=== PATIENT | male | born 1940 | race Caucasian/White ===

== ENCOUNTER 2019-07-11 17:11 | Inpatient (IN) ==
[2019-07-11] MEDS ORDERED: MORPHINE 10 MG/1 ML VIAL ONE (17:19)
[2019-07-11] MEDS ORDERED: hydrALAZINE 20 MG/1 ML VIAL ONE (17:19)
[2019-07-11] MEDS ORDERED: MORPHINE 10 MG/1 ML VIAL IV STA (17:22)
[2019-07-11] MEDS ORDERED: hydrALAZINE 20 MG/1 ML VIAL IV STA (17:22)
[2019-07-11] MEDS ORDERED: ALBUTEROL NEB SOLN 5 MG/ML 20 ML/BOTTLE CONT NEB STA (17:22)
[2019-07-11] MEDS ORDERED: FUROSEMIDE 100 MG/10 ML VIAL IV STA (17:23)
[2019-07-11] MEDS ORDERED: methylPREDNISolone SOD SUC 40 MG/1 ML VIAL IV STA (17:23)
[2019-07-11] MEDS ORDERED: NITROGLYCERIN SL 0.4 MG TABLET SL STA (17:24)
[2019-07-11] MEDS ORDERED: NITROGLYCERIN 2% OINT 1 INCH/GM PACK TOP STA (17:24)
[2019-07-11] MEDS ORDERED: NITROGLYCERIN SL 0.4 MG TABLET SL ONE (17:26)
[2019-07-11 18:10] LABS: ABG Base Excess -4.1 MMOL/L (-2.5-2.5); ABG HCO3 21.1 MMOL/L (20-26); ABG Oxygen Saturation 98.3 % (95-100); ABG PH 7.211 (7.35-7.45); ABG TCO2 22.9 MMOL/L (23-27)
[2019-07-11 18:12] LABS: Basophils # 0.7 10*3/uL (0.0-0.2); Basophils % 2.2 % (0.0-0.8); Eosinophils # 1.1 10*3/uL (0.0-0.87); Eosinophils % 3.3 % (0.00-10.9); Immature Granulocytes % 3.3 %; Immature Granulocytes Absolute 1.08 #; Lymphocytes # 3.4 10*3/uL (1.4-4.0); Lymphocytes % 10.3 % (21.2-54.2); Mean Corpuscular HGB Conc 31.6 GM/DL (32-36); Mean Corpuscular Volume 94.9 FL (87-102); Mean Platelet Volume 11.5 FL (9.6-12.0); Monocytes % 2.6 % (1.7-12.7); NRBC # 0.16 10*3/uL; Neutrophils % 78.3 % (38.7-73.9); Platelet Count 619 T/CUMM (130-400); Red Cell Distribution Width 18.8 % (9.3-17.3); White Blood Count 32.8 T/CUMM (4-12)
[2019-07-11 18:12] LABS: ABG PCO2 69.9 MM HG (35-48)
[2019-07-11 18:16] LABS: Hematocrit 65.5 VOL% (42.0-52.0); Hemoglobin 20.7 GM/DL (14.0-18.0)
[2019-07-11] MEDS ORDERED: ACETAMINOPHEN 325 MG TABLET PO PRN (18:29)
[2019-07-11] MEDS ORDERED: MORPHINE 4 MG/1 ML VIAL IV PRN (18:29)
[2019-07-11] MEDS ORDERED: ONDANSETRON 4 MG/2 ML VIAL IV PRN (18:29)
[2019-07-11 18:48] LABS: Calcium 8.5 MG/DL (8.5-10.1)
[2019-07-11 18:49] LABS: Albumin 3.7 G/DL (3.4-5.0); Bilirubin,Total 0.77 MG/DL (0.2-1.0); Osmolality,Calculated 288.4 MOS/KG (273-304); Total Protein 7.9 G/DL (6.4-8.3)
[2019-07-11] MEDS: PROPOFOL 1,000 MG/100 ML BOTTLE IV SCH (18:50)
[2019-07-11 18:55] LABS: Risk Ratio 5.09; VLDL CHOLESTEROL 77.6 MG/DL
[2019-07-11] MEDS ORDERED: ROCURONIUM 100 MG/10 ML VIAL IV ONE (19:00)
[2019-07-11] MEDS ORDERED: VECURONIUM 10 MG VIAL IV ONE (19:00)
[2019-07-11] MEDS ORDERED: ETOMIDATE 20 MG/10 ML VIAL IV ONE (19:01)
[2019-07-11 19:27] LABS: Band Neutrophils 15 % (0-10); Eosinophils 3 % (0-10); Lymphocytes 12 % (20-55); Segmented Neutrophils 69 % (50-85); Total Cells Counted 100
[2019-07-11 19:29] LABS: Platelet Estimate Increased; Reactive Lymphocytes Slight
[2019-07-11] MEDS ORDERED: DOPamine 800 MG/250 ML PREMIX IV PRN (20:16)
[2019-07-11] MEDS ORDERED: DOPamine 800 MG/250 ML PREMIX IV ONE (20:19)
[2019-07-11] MEDS: ALBUTEROL 2.5 MG/3 ML NEB RESP TX SCH (20:48)
[2019-07-11] MEDS ORDERED: ENOXAPARIN 40 MG/0.4 ML SYRINGE SUBCUT SCH (21:00)
[2019-07-11] MEDS: PANTOPRAZOLE 40 MG VIAL IV SCH (22:47)
[2019-07-11] MEDS: DOCUSATE SODIUM 100 MG CAPSULE PO SCH (22:47)
[2019-07-11 23:48] LABS: Calcium 8.1 MG/DL (8.5-10.1); Osmolality,Calculated 294.8 MOS/KG (273-304)
[2019-07-12 00:20] LABS: Apearance,Urine CLOUDY (Clear); Bacteria,Urine Occasional /HPF (Few); Bilirubin,Urine Negative (Negative); Blood, Urine Moderate mg/dL (Negative); Glucose,Urine (UA) 50 mg/dL (Negative); Hyaline Casts,Urine 14 /LPF (0-3); Ketones,Urine Negative (Negative); Mucus,Urine Occasional /LPF (Occasional); Nitrite,Urine Negative (Negative); Protein,Urine 100 MG/DL; RBC,Urine 6 /HPF (0-4); Squamous Epithelial Cell,Urine Occasional /HPF (0-10); Urine Color Amber (Yellow); Urine Specific Gravity 1.013 (1.001-1.035); Urine Urobilinogen < 2.0 EU/DL (0.2-1.0); WBC,Urine 10 /HPF (0-6)
[2019-07-12] MEDS: ALBUTEROL 2.5 MG/3 ML NEB RESP TX SCH ×4 (00:55→20:33)
[2019-07-12] MEDS: PROPOFOL 1,000 MG/100 ML BOTTLE IV SCH ×4 (03:06→22:59)
[2019-07-12 04:12] LABS: ABG Base Excess 2.8 MMOL/L (-2.5-2.5); ABG HCO3 26.9 MMOL/L (20-26); ABG Oxygen Saturation 99.3 % (95-100); ABG PCO2 42.1 MM HG (35-48); ABG PH 7.424 (7.35-7.45); ABG TCO2 22.6 MMOL/L (23-27); Allen Test Positive; Pt O2 Delivery Device Ventilator
[2019-07-12 04:52] LABS: Basophils # 0.1 10*3/uL (0.0-0.2); Basophils % 0.6 % (0.0-0.8); Eosinophils # 0.1 10*3/uL (0.0-0.87); Eosinophils % 0.4 % (0.00-10.9); Hematocrit 52.4 VOL% (42.0-52.0); Immature Granulocytes % 2.1 %; Immature Granulocytes Absolute 0.46 #; Lymphocytes # 0.5 10*3/uL (1.4-4.0); Lymphocytes % 2.4 % (21.2-54.2); Mean Corpuscular HGB Conc 32.6 GM/DL (32-36); Mean Corpuscular Volume 93.9 FL (87-102); Mean Platelet Volume 12.7 FL (9.6-12.0); Monocytes % 1.9 % (1.7-12.7); Neutrophils % 92.6 % (38.7-73.9); Red Blood Count 5.58 MC/CUMM (3.8-5.5); Red Cell Distribution Width 17.8 % (9.3-17.3); White Blood Count 21.9 T/CUMM (4-12)
[2019-07-12 04:55] LABS: Hemoglobin 17.1 GM/DL (14.0-18.0)
[2019-07-12 04:56] LABS: Platelet Count 298 T/CUMM (130-400)
[2019-07-12 05:00] LABS: Band Neutrophils 8 % (0-10); Lymphocytes 3 % (20-55); Platelet Estimate Adequate; Segmented Neutrophils 89 % (50-85); Total Cells Counted 100
[2019-07-12 05:10] LABS: Calcium 7.7 MG/DL (8.5-10.1); Osmolality,Calculated 291.1 MOS/KG (273-304)
[2019-07-12] MEDS: MEROPENEM 1,000 MG in SODIUM CHLORIDE 0.9% 100 ML IV SCH ×2 (06:29→18:13)
[2019-07-12] MEDS: ALLOPURINOL 100 MG TABLET PO SCH (08:58)
[2019-07-12] MEDS: amLODIPine 5 MG TABLET PO SCH (08:58)
[2019-07-12] MEDS: ASPIRIN EC 81 MG TABLET PO SCH (08:58)
[2019-07-12] MEDS: carvediloL 25 MG TABLET PO SCH ×2 (08:58→17:05)
[2019-07-12] MEDS: DOCUSATE SODIUM 100 MG CAPSULE PO SCH ×2 (08:58→21:52)
[2019-07-12] MEDS: FUROSEMIDE 40 MG/4 ML VIAL IV SCH (08:58)
[2019-07-12] MEDS: methylPREDNISolone SOD SUC 40 MG/1 ML VIAL IV SCH ×2 (08:59→17:05)
[2019-07-12] MEDS ORDERED: PANTOPRAZOLE 40 MG TABLET PO SCH (09:00)
[2019-07-12] MEDS: ENOXAPARIN 80 MG/0.8 ML SYRINGE SUBCUT SCH (14:56)
[2019-07-12] MEDS: DESITIN 4OZ/NYSTATIN 15 GRAM MIXTURE PASTE TOP SCH ×2 (17:03→21:51)
[2019-07-12] MEDS: PANTOPRAZOLE 40 MG VIAL IV SCH (21:52)
[2019-07-13] MEDS: methylPREDNISolone SOD SUC 40 MG/1 ML VIAL IV SCH ×3 (01:17→17:00)
[2019-07-13] MEDS: ALBUTEROL 2.5 MG/3 ML NEB RESP TX SCH ×4 (01:44→20:14)
[2019-07-13 04:18] LABS: ABG Base Excess 3.4 MMOL/L (-2.5-2.5); ABG HCO3 27.4 MMOL/L (20-26); ABG Oxygen Saturation 99.6 % (95-100); ABG PCO2 38.4 MM HG (35-48); ABG PH 7.459 (7.35-7.45); ABG TCO2 22.7 MMOL/L (23-27); Allen Test Positive; Pt O2 Delivery Device Ventilator
[2019-07-13 05:06] LABS: Basophils # 0.1 10*3/uL (0.0-0.2); Basophils % 0.3 % (0.0-0.8); Hematocrit 48.8 VOL% (42.0-52.0); Hemoglobin 15.8 GM/DL (14.0-18.0); Immature Granulocytes % 1.2 %; Immature Granulocytes Absolute 0.21 #; Lymphocytes # 0.4 10*3/uL (1.4-4.0); Lymphocytes % 2.6 % (21.2-54.2); Mean Corpuscular HGB Conc 32.4 GM/DL (32-36); Mean Corpuscular Volume 92.6 FL (87-102); Mean Platelet Volume 12.5 FL (9.6-12.0); Neutrophils % 94.9 % (38.7-73.9); Platelet Count 267 T/CUMM (130-400); Red Blood Count 5.27 MC/CUMM (3.8-5.5); Red Cell Distribution Width 17.3 % (9.3-17.3); White Blood Count 16.9 T/CUMM (4-12)
[2019-07-13 05:17] LABS: Calcium 8.3 MG/DL (8.5-10.1); Osmolality,Calculated 309.1 MOS/KG (273-304)
[2019-07-13 05:32] LABS: Band Neutrophils 6 % (0-10); Lymphocytes 1 % (20-55); Segmented Neutrophils 93 % (50-85); Total Cells Counted 100
[2019-07-13 05:33] LABS: Hypochromasia 1+; Platelet Estimate Adequate
[2019-07-13] MEDS: PROPOFOL 1,000 MG/100 ML BOTTLE IV SCH ×4 (05:44→20:38)
[2019-07-13] MEDS: MEROPENEM 1,000 MG in SODIUM CHLORIDE 0.9% 100 ML IV SCH ×2 (05:51→18:17)
[2019-07-13] MEDS ORDERED: GLUCAGON 1 MG VIAL IM PRN (08:02)
[2019-07-13] MEDS ORDERED: DEXTROSE 10% 250 ML BAG IV PRN (08:02)
[2019-07-13] MEDS: FUROSEMIDE 40 MG/4 ML VIAL IV SCH (09:25)
[2019-07-13] MEDS: amLODIPine 5 MG TABLET PO SCH (09:28)
[2019-07-13] MEDS: ALLOPURINOL 100 MG TABLET PO SCH (09:28)
[2019-07-13] MEDS: ASPIRIN EC 81 MG TABLET PO SCH (09:28)
[2019-07-13] MEDS: DOCUSATE SODIUM 100 MG CAPSULE PO SCH ×2 (09:28→20:39)
[2019-07-13] MEDS: carvediloL 12.5 MG TABLET PO SCH ×2 (09:29→16:59)
[2019-07-13] MEDS: DESITIN 4OZ/NYSTATIN 15 GRAM MIXTURE PASTE TOP SCH ×2 (09:29→20:39)
[2019-07-13] MEDS: carvediloL 25 MG TABLET PO SCH (10:48)
[2019-07-13] MEDS: INSULIN LISPRO 100 UNIT/ML SUBCUT SCH ×2 (12:55→18:23)
[2019-07-13] MEDS: ENOXAPARIN 80 MG/0.8 ML SYRINGE SUBCUT SCH (16:59)
[2019-07-13] MEDS: PANTOPRAZOLE 40 MG VIAL IV SCH (20:39)
[2019-07-13] MEDS: ENOXAPARIN 30 MG/0.3 ML SYRINGE SUBCUT SCH (20:39)
[2019-07-14] MEDS: PROPOFOL 1,000 MG/100 ML BOTTLE IV SCH ×2 (00:16→04:41)
[2019-07-14] MEDS: INSULIN LISPRO 100 UNIT/ML SUBCUT SCH ×4 (00:37→18:42)
[2019-07-14] MEDS: methylPREDNISolone SOD SUC 40 MG/1 ML VIAL IV SCH ×3 (00:37→17:30)
[2019-07-14] MEDS: ALBUTEROL 2.5 MG/3 ML NEB RESP TX SCH ×4 (01:00→19:41)
[2019-07-14 03:19] LABS: ABG Base Excess 4.2 MMOL/L (-2.5-2.5); ABG HCO3 29.1 MMOL/L (20-26); ABG Oxygen Saturation 98.9 % (95-100); ABG PCO2 44.2 MM HG (35-48); ABG PH 7.437 (7.35-7.45); ABG PO2 156.5 MM HG (80-95); ABG TCO2 30.5 MMOL/L (23-27); Allen Test Positive; Pt O2 Delivery Device Ventilator
[2019-07-14 05:02] LABS: Basophils % 0.2 % (0.0-0.8); Hematocrit 49.8 VOL% (42.0-52.0); Hemoglobin 15.6 GM/DL (14.0-18.0); Immature Granulocytes % 2.4 %; Immature Granulocytes Absolute 0.47 #; Lymphocytes # 0.4 10*3/uL (1.4-4.0); Lymphocytes % 2.1 % (21.2-54.2); Mean Corpuscular HGB Conc 31.3 GM/DL (32-36); Mean Platelet Volume 12.3 FL (9.6-12.0); Monocytes % 1.3 % (1.7-12.7); Platelet Count 289 T/CUMM (130-400); Red Blood Count 5.24 MC/CUMM (3.8-5.5); Red Cell Distribution Width 17.6 % (9.3-17.3); White Blood Count 19.3 T/CUMM (4-12)
[2019-07-14 05:21] LABS: Calcium 8.3 MG/DL (8.5-10.1); Osmolality,Calculated 316.8 MOS/KG (273-304)
[2019-07-14 05:26] LABS: Prealbumin 22.5 MG/DL (20-40)
[2019-07-14 05:41] LABS: Lymphocytes 1 % (20-55); Platelet Estimate Normal; Segmented Neutrophils 99 % (50-85); Total Cells Counted 100
[2019-07-14] MEDS: MEROPENEM 1,000 MG in SODIUM CHLORIDE 0.9% 100 ML IV SCH ×2 (05:49→19:05)
[2019-07-14] MEDS: ASPIRIN EC 81 MG TABLET PO SCH (08:47)
[2019-07-14] MEDS: FUROSEMIDE 40 MG/4 ML VIAL IV SCH (08:47)
[2019-07-14] MEDS: ALLOPURINOL 100 MG TABLET PO SCH (08:48)
[2019-07-14] MEDS: carvediloL 12.5 MG TABLET PO SCH ×2 (08:48→18:23)
[2019-07-14] MEDS: amLODIPine 5 MG TABLET PO SCH (08:48)
[2019-07-14] MEDS: DOCUSATE SODIUM 100 MG CAPSULE PO SCH ×2 (08:48→20:27)
[2019-07-14] MEDS: DESITIN 4OZ/NYSTATIN 15 GRAM MIXTURE PASTE TOP SCH ×2 (08:48→20:27)
[2019-07-14] MEDS ORDERED: carvediloL 12.5 MG TABLET PO SCH (11:30)
[2019-07-14] MEDS: PANTOPRAZOLE 40 MG VIAL IV SCH (20:26)
[2019-07-14] MEDS: ENOXAPARIN 30 MG/0.3 ML SYRINGE SUBCUT SCH (20:26)
[2019-07-15] MEDS: ALBUTEROL 2.5 MG/3 ML NEB RESP TX SCH ×4 (00:45→19:30)
[2019-07-15] MEDS: INSULIN LISPRO 100 UNIT/ML SUBCUT SCH ×4 (00:58→19:28)
[2019-07-15] MEDS: methylPREDNISolone SOD SUC 40 MG/1 ML VIAL IV SCH ×4 (00:58→20:50)
[2019-07-15] MEDS: MEROPENEM 1,000 MG in SODIUM CHLORIDE 0.9% 100 ML IV SCH (06:10)
[2019-07-15 06:31] LABS: Basophils # 0.1 10*3/uL (0.0-0.2); Basophils % 0.4 % (0.0-0.8); Eosinophils % 0.1 % (0.00-10.9); Hematocrit 55.1 VOL% (42.0-52.0); Hemoglobin 17.4 GM/DL (14.0-18.0); Immature Granulocytes % 2.8 %; Immature Granulocytes Absolute 0.55 #; Lymphocytes # 0.5 10*3/uL (1.4-4.0); Lymphocytes % 2.5 % (21.2-54.2); Mean Corpuscular HGB Conc 31.6 GM/DL (32-36); Mean Corpuscular Volume 94.3 FL (87-102); Mean Platelet Volume 12.4 FL (9.6-12.0); Monocytes % 1.4 % (1.7-12.7); NRBC # 0.02 10*3/uL; Neutrophils % 92.8 % (38.7-73.9); Platelet Count 278 T/CUMM (130-400); Red Blood Count 5.84 MC/CUMM (3.8-5.5); Red Cell Distribution Width 18.3 % (9.3-17.3)
[2019-07-15 06:55] LABS: Band Neutrophils 3 % (0-10); Eosinophils 1 % (0-10); Lymphocytes 1 % (20-55); Platelet Estimate Adequate; Segmented Neutrophils 95 % (50-85); Total Cells Counted 100
[2019-07-15 07:05] LABS: Albumin 3.1 G/DL (3.4-5.0); Bilirubin,Total 1.4 MG/DL (0.2-1.0); Calcium 8.7 MG/DL (8.5-10.1); Osmolality,Calculated 306.4 MOS/KG (273-304); Total Protein 6.5 G/DL (6.4-8.3)
[2019-07-15] MEDS ORDERED: FUROSEMIDE 40 MG TABLET PO SCH (09:00)
[2019-07-15] MEDS: FUROSEMIDE 40 MG TABLET PO SCH (09:42)
[2019-07-15] MEDS: ASPIRIN EC 81 MG TABLET PO SCH (09:42)
[2019-07-15] MEDS: DOCUSATE SODIUM 100 MG CAPSULE PO SCH ×2 (09:43→20:55)
[2019-07-15] MEDS: amLODIPine 5 MG TABLET PO SCH (09:43)
[2019-07-15] MEDS: carvediloL 12.5 MG TABLET PO SCH ×2 (09:43→19:27)
[2019-07-15] MEDS: ALLOPURINOL 100 MG TABLET PO SCH (09:43)
[2019-07-15] MEDS: DESITIN 4OZ/NYSTATIN 15 GRAM MIXTURE PASTE TOP SCH ×2 (09:43→21:10)
[2019-07-15] MEDS: PANTOPRAZOLE 40 MG VIAL IV SCH (20:52)
[2019-07-15] MEDS: MEROPENEM 500 MG in SODIUM CHLORIDE 0.9% 100 ML IV SCH (20:54)
[2019-07-16] MEDS: ALBUTEROL 2.5 MG/3 ML NEB RESP TX SCH ×4 (00:20→19:42)
[2019-07-16] MEDS: INSULIN LISPRO 100 UNIT/ML SUBCUT SCH ×4 (00:41→17:47)
[2019-07-16] MEDS: MEROPENEM 500 MG in SODIUM CHLORIDE 0.9% 100 ML IV SCH ×3 (04:30→20:05)
[2019-07-16 04:49] LABS: Basophils # 0.1 10*3/uL (0.0-0.2); Basophils % 0.4 % (0.0-0.8); Eosinophils # 0.2 10*3/uL (0.0-0.87); Eosinophils % 1.1 % (0.00-10.9); Hematocrit 52.7 VOL% (42.0-52.0); Hemoglobin 16.8 GM/DL (14.0-18.0); Immature Granulocytes Absolute 0.57 #; Lymphocytes # 0.7 10*3/uL (1.4-4.0); Lymphocytes % 3.6 % (21.2-54.2); Mean Corpuscular HGB Conc 31.9 GM/DL (32-36); Mean Corpuscular Volume 94.8 FL (87-102); Mean Platelet Volume 11.8 FL (9.6-12.0); NRBC # 0.03 10*3/uL; Neutrophils % 89.9 % (38.7-73.9); Platelet Count 269 T/CUMM (130-400); Red Blood Count 5.56 MC/CUMM (3.8-5.5); Red Cell Distribution Width 17.6 % (9.3-17.3); White Blood Count 18.8 T/CUMM (4-12)
[2019-07-16 05:30] LABS: Bilirubin,Total 1.2 MG/DL (0.2-1.0); Calcium 7.9 MG/DL (8.5-10.1); Osmolality,Calculated 308.3 MOS/KG (273-304)
[2019-07-16 06:15] LABS: Band Neutrophils 7 % (0-10); Eosinophils 1 % (0-10); Lymphocytes 7 % (20-55); Segmented Neutrophils 84 % (50-85); Total Cells Counted 100
[2019-07-16 06:16] LABS: Anisocytosis 1+; Platelet Estimate Normal; Tear Drop Cells 1+
[2019-07-16] MEDS: methylPREDNISolone SOD SUC 40 MG/1 ML VIAL IV SCH ×2 (10:14→21:52)
[2019-07-16] MEDS: FUROSEMIDE 40 MG TABLET PO SCH (10:15)
[2019-07-16] MEDS: amLODIPine 5 MG TABLET PO SCH (10:15)
[2019-07-16] MEDS: DOCUSATE SODIUM 100 MG CAPSULE PO SCH ×2 (10:15→21:51)
[2019-07-16] MEDS: carvediloL 12.5 MG TABLET PO SCH ×2 (10:16→17:47)
[2019-07-16] MEDS: ASPIRIN EC 81 MG TABLET PO SCH (10:16)
[2019-07-16] MEDS: DESITIN 4OZ/NYSTATIN 15 GRAM MIXTURE PASTE TOP SCH ×2 (10:21→22:00)
[2019-07-16] MEDS: ALLOPURINOL 100 MG TABLET PO SCH (10:21)
[2019-07-16] MEDS: PANTOPRAZOLE 40 MG VIAL IV SCH (21:55)
[2019-07-17] MEDS: ALBUTEROL 2.5 MG/3 ML NEB RESP TX SCH ×4 (00:27→19:41)
[2019-07-17] MEDS: INSULIN LISPRO 100 UNIT/ML SUBCUT SCH ×4 (00:34→18:10)
[2019-07-17] MEDS: MEROPENEM 500 MG in SODIUM CHLORIDE 0.9% 100 ML IV SCH ×3 (04:31→20:31)
[2019-07-17 05:17] LABS: Basophils # 0.1 10*3/uL (0.0-0.2); Basophils % 0.4 % (0.0-0.8); Eosinophils # 0.3 10*3/uL (0.0-0.87); Eosinophils % 1.4 % (0.00-10.9); Hematocrit 50.4 VOL% (42.0-52.0); Hemoglobin 16.2 GM/DL (14.0-18.0); Immature Granulocytes % 2.1 %; Immature Granulocytes Absolute 0.39 #; Lymphocytes # 0.6 10*3/uL (1.4-4.0); Lymphocytes % 3.1 % (21.2-54.2); Mean Corpuscular HGB Conc 32.1 GM/DL (32-36); Mean Platelet Volume 12.7 FL (9.6-12.0); Monocytes % 1.5 % (1.7-12.7); NRBC # 0.03 10*3/uL; Neutrophils % 91.5 % (38.7-73.9); Platelet Count 257 T/CUMM (130-400); Red Blood Count 5.42 MC/CUMM (3.8-5.5); Red Cell Distribution Width 17.3 % (9.3-17.3); White Blood Count 18.5 T/CUMM (4-12)
[2019-07-17 05:33] LABS: Albumin 2.9 G/DL (3.4-5.0); Bilirubin,Total 0.6 MG/DL (0.2-1.0); Osmolality,Calculated 301.7 MOS/KG (273-304); Total Protein 5.6 G/DL (6.4-8.3)
[2019-07-17 06:04] LABS: Band Neutrophils 24 % (0-10); Eosinophils 2 % (0-10); Lymphocytes 7 % (20-55); Platelet Estimate Normal; Segmented Neutrophils 65 % (50-85); Total Cells Counted 100
[2019-07-17 06:05] LABS: Anisocytosis Slight
[2019-07-17] MEDS: methylPREDNISolone SOD SUC 40 MG/1 ML VIAL IV SCH ×2 (09:04→20:27)
[2019-07-17] MEDS: amLODIPine 5 MG TABLET PO SCH (09:05)
[2019-07-17] MEDS: carvediloL 12.5 MG TABLET PO SCH ×2 (09:05→18:10)
[2019-07-17] MEDS: DOCUSATE SODIUM 100 MG CAPSULE PO SCH ×2 (09:05→20:28)
[2019-07-17] MEDS: ASPIRIN EC 81 MG TABLET PO SCH (09:05)
[2019-07-17] MEDS: FUROSEMIDE 40 MG TABLET PO SCH (09:06)
[2019-07-17] MEDS: DESITIN 4OZ/NYSTATIN 15 GRAM MIXTURE PASTE TOP SCH ×2 (18:09→20:31)
[2019-07-17] MEDS: ALLOPURINOL 100 MG TABLET PO SCH (18:09)
[2019-07-17] MEDS: INSULIN GLARGINE 100 UNIT/ML SUBCUT SCH (19:14)
[2019-07-17] MEDS: PANTOPRAZOLE 40 MG VIAL IV SCH (20:28)
[2019-07-18] MEDS: INSULIN LISPRO 100 UNIT/ML SUBCUT SCH ×4 (00:34→18:12)
[2019-07-18] MEDS: ALBUTEROL 2.5 MG/3 ML NEB RESP TX SCH ×4 (00:43→19:20)
[2019-07-18] MEDS: MEROPENEM 500 MG in SODIUM CHLORIDE 0.9% 100 ML IV SCH ×3 (04:13→21:40)
[2019-07-18 05:15] LABS: Basophils # 0.1 10*3/uL (0.0-0.2); Basophils % 0.5 % (0.0-0.8); Eosinophils # 0.3 10*3/uL (0.0-0.87); Eosinophils % 1.8 % (0.00-10.9); Hematocrit 51.5 VOL% (42.0-52.0); Hemoglobin 16.3 GM/DL (14.0-18.0); Immature Granulocytes % 3.8 %; Immature Granulocytes Absolute 0.72 #; Lymphocytes # 0.6 10*3/uL (1.4-4.0); Lymphocytes % 3.1 % (21.2-54.2); Mean Corpuscular HGB Conc 31.7 GM/DL (32-36); Mean Corpuscular Volume 94.7 FL (87-102); Mean Platelet Volume 12.3 FL (9.6-12.0); Monocytes % 1.8 % (1.7-12.7); NRBC # 0.05 10*3/uL; Platelet Count 270 T/CUMM (130-400); Red Blood Count 5.44 MC/CUMM (3.8-5.5); Red Cell Distribution Width 17.9 % (9.3-17.3)
[2019-07-18 05:47] LABS: Prealbumin 36.4 MG/DL (20-40)
[2019-07-18 05:48] LABS: Bilirubin,Total 1.1 MG/DL (0.2-1.0); Calcium 8.4 MG/DL (8.5-10.1); Osmolality,Calculated 310.3 MOS/KG (273-304); Total Protein 5.7 G/DL (6.4-8.3)
[2019-07-18 05:51] LABS: Band Neutrophils 6 % (0-10); Eosinophils 2 % (0-10); Lymphocytes 4 % (20-55); Platelet Estimate Normal; Segmented Neutrophils 88 % (50-85); Total Cells Counted 100
[2019-07-18 06:05] LABS: Anisocytosis 1+; Macrocytosis Slight; Ovalocytes Few; Stomatocytes Slight
[2019-07-18] MEDS ORDERED: ceFAZolin 1,000 MG in SYRINGE 1 EACH IV ONE (08:00)
[2019-07-18] MEDS ORDERED: TISSUE ADHESIVE 1 EACH APPLICATOR TOP ONE (09:12)
[2019-07-18] MEDS ORDERED: LIDOCAINE 1%/EPI INJ 20 ML VIAL ONE (09:12)
[2019-07-18] MEDS ORDERED: ceFAZolin 1,000 MG VIAL ONE (09:26)
[2019-07-18] MEDS: INSULIN GLARGINE 100 UNIT/ML SUBCUT SCH (10:37)
[2019-07-18] MEDS: ASPIRIN EC 81 MG TABLET PO SCH (12:16)
[2019-07-18] MEDS: ALLOPURINOL 100 MG TABLET PO SCH (12:16)
[2019-07-18] MEDS: carvediloL 12.5 MG TABLET PO SCH ×2 (12:17→18:12)
[2019-07-18] MEDS: DOCUSATE SODIUM 100 MG CAPSULE PO SCH ×2 (12:17→21:40)
[2019-07-18] MEDS: amLODIPine 5 MG TABLET PO SCH (12:17)
[2019-07-18] MEDS: FUROSEMIDE 40 MG TABLET PO SCH (12:17)
[2019-07-18] MEDS: methylPREDNISolone SOD SUC 40 MG/1 ML VIAL IV SCH ×2 (12:18→21:39)
[2019-07-18] MEDS: DESITIN 4OZ/NYSTATIN 15 GRAM MIXTURE PASTE TOP SCH ×2 (12:21→22:20)
[2019-07-18] MEDS ORDERED: DOXAZOSIN 1 MG TABLET PO SCH (21:00)
[2019-07-18] MEDS: PANTOPRAZOLE 40 MG VIAL IV SCH (21:39)
[2019-07-18] MEDS ORDERED: INSULIN LISPRO 100 UNIT/ML SUBCUT ONE (22:09)
[2019-07-19] MEDS: INSULIN LISPRO 100 UNIT/ML SUBCUT SCH ×3 (00:44→12:50)
[2019-07-19] MEDS: ALBUTEROL 2.5 MG/3 ML NEB RESP TX SCH ×2 (01:02→08:10)
[2019-07-19] MEDS: MEROPENEM 500 MG in SODIUM CHLORIDE 0.9% 100 ML IV SCH ×2 (05:20→12:51)
[2019-07-19 05:57] LABS: Basophils # 0.1 10*3/uL (0.0-0.2); Basophils % 0.4 % (0.0-0.8); Eosinophils # 0.3 10*3/uL (0.0-0.87); Eosinophils % 1.8 % (0.00-10.9); Hematocrit 48.8 VOL% (42.0-52.0); Hemoglobin 15.9 GM/DL (14.0-18.0); Immature Granulocytes % 4.9 %; Immature Granulocytes Absolute 0.84 #; Lymphocytes # 0.7 10*3/uL (1.4-4.0); Mean Corpuscular HGB Conc 32.6 GM/DL (32-36); Mean Corpuscular Volume 92.6 FL (87-102); Mean Platelet Volume 12.4 FL (9.6-12.0); Monocytes % 1.9 % (1.7-12.7); NRBC # 0.03 10*3/uL; Platelet Count 275 T/CUMM (130-400); Red Blood Count 5.27 MC/CUMM (3.8-5.5); Red Cell Distribution Width 18.1 % (9.3-17.3)
[2019-07-19 06:27] LABS: Band Neutrophils 10 % (0-10); Eosinophils 1 % (0-10); Lymphocytes 2 % (20-55); Segmented Neutrophils 86 % (50-85); Total Cells Counted 100
[2019-07-19 06:28] LABS: Anisocytosis 1+; Platelet Estimate Normal; Polychromasia Few
[2019-07-19 06:38] LABS: Albumin 2.7 G/DL (3.4-5.0); Calcium 8.4 MG/DL (8.5-10.1); Osmolality,Calculated 296.7 MOS/KG (273-304); Total Protein 5.3 G/DL (6.4-8.3)
[2019-07-19] MEDS: DOCUSATE SODIUM 100 MG CAPSULE PO SCH (09:30)
[2019-07-19] MEDS: ASPIRIN EC 81 MG TABLET PO SCH (09:30)
[2019-07-19] MEDS: ALLOPURINOL 100 MG TABLET PO SCH (09:31)
[2019-07-19] MEDS: amLODIPine 5 MG TABLET PO SCH (09:31)
[2019-07-19] MEDS: carvediloL 12.5 MG TABLET PO SCH (09:31)
[2019-07-19] MEDS: FUROSEMIDE 40 MG TABLET PO SCH (09:31)
[2019-07-19] MEDS: methylPREDNISolone SOD SUC 40 MG/1 ML VIAL IV SCH (09:32)
[2019-07-19] MEDS: DESITIN 4OZ/NYSTATIN 15 GRAM MIXTURE PASTE TOP SCH (09:32)
[2019-07-19] MEDS: INSULIN GLARGINE 100 UNIT/ML SUBCUT SCH (10:23)
[2019-07-19 12:59] VITALS: BP 136/65
== END 2019-07-19 15:21 | disposition home or self-care (01) | DRG 982 ==
LOC: N.ED 17:11 → N.EDINP 18:29 → N.CC 19:21 → N.TELES 07-15 13:14
PROVIDERS: ADMIT Family Medicine; ATTEND Family Medicine

== ENCOUNTER 2020-03-17 01:28 | Observation (INO) ==
[2020-03-17 01:58] LABS: Basophils # 0.1 10*3/uL (0.0-0.2); Basophils % 0.8 % (0.0-0.8); Eosinophils # 0.4 10*3/uL (0.0-0.87); Eosinophils % 3.1 % (0.00-10.9); Hematocrit 51.6 VOL% (42.0-52.0); Hemoglobin 16.3 GM/DL (14.0-18.0); Immature Granulocytes % 1.2 %; Immature Granulocytes Absolute 0.14 #; Lymphocytes # 0.6 10*3/uL (1.4-4.0); Lymphocytes % 5.6 % (21.2-54.2); Mean Corpuscular HGB Conc 31.6 GM/DL (32-36); Mean Corpuscular Volume 98.1 FL (87-102); Mean Platelet Volume 11.7 FL (9.6-12.0); Monocytes % 3.5 % (1.7-12.7); NRBC # 0.03 10*3/uL; Neutrophils % 85.8 % (38.7-73.9); Platelet Count 271 T/CUMM (130-400); Red Blood Count 5.26 MC/CUMM (3.8-5.5); Red Cell Distribution Width 16.3 % (9.3-17.3); White Blood Count 11.5 T/CUMM (4-12)
[2020-03-17 02:29] LABS: Albumin 3.2 G/DL (3.4-5.0); Bilirubin,Total 1.3 MG/DL (0.2-1.0); Ferritin 87.7 ng/ml (26-388); Osmolality,Calculated 280.7 MOS/KG (273-304); Total Protein 6.6 G/DL (6.4-8.3)
[2020-03-17] MEDS ORDERED: LEVOFLOXACIN INJ 500 MG in PREMIX 1 EACH IV STA (03:39)
[2020-03-17] MEDS ORDERED: ACETAMINOPHEN 325 MG TABLET PO PRN (03:41)
[2020-03-17] MEDS ORDERED: ONDANSETRON 4 MG/2 ML VIAL IV PRN (03:41)
[2020-03-17 04:08] LABS: Apearance,Urine CLEAR (Clear); Bilirubin,Urine Negative (Negative); Blood, Urine Negative (Negative); Glucose,Urine (UA) Negative (Negative); Ketones,Urine 5 mg/dL (Negative); Mucus,Urine Occasional /LPF (Occasional); Nitrite,Urine Negative (Negative); Protein,Urine Negative; RBC,Urine 4 /HPF (0-4); Squamous Epithelial Cell,Urine Occasional /HPF (0-10); Urine Color Yellow (Yellow); Urine Specific Gravity 1.013 (1.001-1.035); Urine Urobilinogen < 2.0 EU/DL (0.2-1.0); WBC,Urine 51 /HPF (0-6)
[2020-03-17] MEDS ORDERED: LEVOFLOXACIN INJ 100 ML IV ONE (04:12)
[2020-03-17 08:48] LABS: Basophils # 0.1 10*3/uL (0.0-0.2); Basophils % 0.9 % (0.0-0.8); Eosinophils # 0.3 10*3/uL (0.0-0.87); Eosinophils % 2.6 % (0.00-10.9); Hematocrit 52.8 VOL% (42.0-52.0); Hemoglobin 16.8 GM/DL (14.0-18.0); Immature Granulocytes % 0.9 %; Immature Granulocytes Absolute 0.12 #; Lymphocytes # 0.9 10*3/uL (1.4-4.0); Lymphocytes % 7.2 % (21.2-54.2); Mean Corpuscular HGB Conc 31.8 GM/DL (32-36); Mean Corpuscular Volume 99.2 FL (87-102); Mean Platelet Volume 11.1 FL (9.6-12.0); Monocytes % 4.4 % (1.7-12.7); NRBC # 0.02 10*3/uL; Platelet Count 282 T/CUMM (130-400); Red Blood Count 5.32 MC/CUMM (3.8-5.5); Red Cell Distribution Width 16.3 % (9.3-17.3); White Blood Count 12.7 T/CUMM (4-12)
[2020-03-17 09:41] LABS: Albumin 3.3 G/DL (3.4-5.0); Bilirubin,Total 1.5 MG/DL (0.2-1.0); Calcium 8.9 MG/DL (8.5-10.1); Total Protein 6.6 G/DL (6.4-8.3)
[2020-03-17] MEDS: PANTOPRAZOLE 40 MG TABLET PO SCH (10:05)
[2020-03-18] MEDS: PANTOPRAZOLE 40 MG TABLET PO SCH (08:58)
[2020-03-18] MEDS: LEVOFLOXACIN INJ 250 MG in PREMIX 1 EACH IV SCH (08:58)
[2020-03-18] MEDS ORDERED: MAGNESIUM OXIDE 400 MG TABLET PO PRN (16:02)
[2020-03-18] MEDS: carvediloL 25 MG TABLET PO SCH (17:18)
[2020-03-18] MEDS: FUROSEMIDE 40 MG/4 ML VIAL IV SCH (17:18)
[2020-03-18] MEDS: ZALEPLON 5 MG CAPSULE PO PRN (20:25)
[2020-03-18] MEDS: DOXAZOSIN 1 MG TABLET PO SCH (20:25)
[2020-03-19 06:28] LABS: Basophils # 0.2 10*3/uL (0.0-0.2); Basophils % 1.8 % (0.0-0.8); Eosinophils # 0.4 10*3/uL (0.0-0.87); Eosinophils % 4.3 % (0.00-10.9); Hematocrit 50.9 VOL% (42.0-52.0); Hemoglobin 15.7 GM/DL (14.0-18.0); Immature Granulocytes % 0.9 %; Immature Granulocytes Absolute 0.08 #; Lymphocytes # 0.8 10*3/uL (1.4-4.0); Lymphocytes % 9.3 % (21.2-54.2); Mean Corpuscular HGB Conc 30.8 GM/DL (32-36); Mean Corpuscular Volume 99.2 FL (87-102); Mean Platelet Volume 11.7 FL (9.6-12.0); Neutrophils % 79.7 % (38.7-73.9); Platelet Count 291 T/CUMM (130-400); Red Blood Count 5.13 MC/CUMM (3.8-5.5); Red Cell Distribution Width 16.1 % (9.3-17.3); White Blood Count 8.6 T/CUMM (4-12)
[2020-03-19 06:52] LABS: Albumin 2.9 G/DL (3.4-5.0); Bilirubin,Total 1.1 MG/DL (0.2-1.0); Calcium 8.6 MG/DL (8.5-10.1); Osmolality,Calculated 282.5 MOS/KG (273-304); Total Protein 6.2 G/DL (6.4-8.3)
[2020-03-19] MEDS: PANTOPRAZOLE 40 MG TABLET PO SCH (08:57)
[2020-03-19] MEDS: ASPIRIN EC 81 MG TABLET PO SCH (08:57)
[2020-03-19] MEDS: amLODIPine 5 MG TABLET PO SCH (08:57)
[2020-03-19] MEDS: FUROSEMIDE 40 MG/4 ML VIAL IV SCH (08:57)
[2020-03-19] MEDS: carvediloL 25 MG TABLET PO SCH ×2 (08:57→16:59)
[2020-03-19] MEDS: LEVOFLOXACIN INJ 250 MG in PREMIX 1 EACH IV SCH (09:00)
[2020-03-19] MEDS ORDERED: POTASSIUM CHLORIDE 20 MEQ TABLET PO ONE (10:09)
[2020-03-19] MEDS ORDERED: MAGNESIUM SULF RIDER 2 GM in PREMIX 1 EACH IV ONE (10:11)
[2020-03-19] MEDS: ASCORBIC ACID 500 MG TABLET PO SCH ×2 (10:28→21:06)
[2020-03-19] MEDS ORDERED: DEXTROSE 50% 25 GM/50 ML VIAL IV PRN (18:01)
[2020-03-19] MEDS ORDERED: GLUCAGON 1 MG VIAL IM PRN (18:01)
[2020-03-19] MEDS: INSULIN LISPRO 100 UNIT/ML SUBCUT SCH (21:06)
[2020-03-19] MEDS: DOXAZOSIN 1 MG TABLET PO SCH (21:06)
[2020-03-19] MEDS: ZALEPLON 5 MG CAPSULE PO PRN (21:10)
[2020-03-20 06:44] LABS: Basophils # 0.2 10*3/uL (0.0-0.2); Basophils % 1.6 % (0.0-0.8); Eosinophils # 0.5 10*3/uL (0.0-0.87); Eosinophils % 4.4 % (0.00-10.9); Hematocrit 53.7 VOL% (42.0-52.0); Hemoglobin 16.9 GM/DL (14.0-18.0); Immature Granulocytes Absolute 0.11 #; Lymphocytes # 1.1 10*3/uL (1.4-4.0); Lymphocytes % 9.9 % (21.2-54.2); Mean Corpuscular HGB Conc 31.5 GM/DL (32-36); Mean Corpuscular Volume 97.6 FL (87-102); Mean Platelet Volume 11.5 FL (9.6-12.0); Monocytes % 3.3 % (1.7-12.7); Neutrophils % 79.8 % (38.7-73.9); Platelet Count 302 T/CUMM (130-400); Red Cell Distribution Width 15.9 % (9.3-17.3); White Blood Count 10.6 T/CUMM (4-12)
[2020-03-20 07:12] LABS: Albumin 3.2 G/DL (3.4-5.0); Calcium 9.1 MG/DL (8.5-10.1); Osmolality,Calculated 280.5 MOS/KG (273-304); Total Protein 6.7 G/DL (6.4-8.3)
[2020-03-20] MEDS: INSULIN LISPRO 100 UNIT/ML SUBCUT SCH ×3 (08:10→16:14)
[2020-03-20] MEDS: FUROSEMIDE 40 MG/4 ML VIAL IV SCH (08:42)
[2020-03-20] MEDS: LEVOFLOXACIN INJ 250 MG in PREMIX 1 EACH IV SCH (08:43)
[2020-03-20] MEDS: ASCORBIC ACID 500 MG TABLET PO SCH (08:43)
[2020-03-20] MEDS: amLODIPine 5 MG TABLET PO SCH (08:43)
[2020-03-20] MEDS: ASPIRIN EC 81 MG TABLET PO SCH (08:43)
[2020-03-20] MEDS: carvediloL 25 MG TABLET PO SCH ×2 (08:43→16:14)
[2020-03-20] MEDS: PANTOPRAZOLE 40 MG TABLET PO SCH (08:43)
[2020-03-20] MEDS ORDERED: POTASSIUM CHLORIDE 20 MEQ TABLET PO ONE (13:47)
[2020-03-20 16:57] VITALS: BP 148/57
[2020-03-21] MEDS ORDERED: SPIRONOLACTONE 25 MG TABLET PO SCH (09:00)
== END 2020-03-20 17:19 | disposition home or self-care (01) ==
LOC: N.ED 01:28 → INTOOBSV 03:40 → N.EDINP 03:40 → N.TELEN 14:59 → N.4E 03-19 12:32
PROVIDERS: ADMIT Family Medicine; ATTEND Family Medicine

== ENCOUNTER 2020-12-01 13:00 | Observation (INO) ==
[2020-12-01 13:29] LABS: Basophils # 0.1 10*3/uL (0.0-0.2); Basophils % 0.5 % (0.0-0.8); Eosinophils # 0.3 10*3/uL (0.0-0.87); Eosinophils % 1.5 % (0.00-10.9); Hematocrit 43.1 VOL% (42.0-52.0); Hemoglobin 13.8 GM/DL (14.0-18.0); Immature Granulocytes % 1.5 %; Immature Granulocytes Absolute 0.27 #; Lymphocytes # 0.8 10*3/uL (1.4-4.0); Lymphocytes % 4.8 % (21.2-54.2); Mean Corpuscular Volume 100.2 FL (87-102); Mean Platelet Volume 11.6 FL (9.6-12.0); Monocytes % 1.9 % (1.7-12.7); NRBC # 0.03 10*3/uL; Neutrophils % 89.8 % (38.7-73.9); Platelet Count 295 T/CUMM (130-400); Red Cell Distribution Width 16.3 % (9.3-17.3); White Blood Count 17.6 T/CUMM (4-12)
[2020-12-01 13:40] LABS: PT Patient Result 11.7 SECS (9.8-11.9); Partial Thromboplastin Time 29.9 SECS (23.9-33.8)
[2020-12-01 13:56] LABS: Albumin 3.9 G/DL (3.4-5.0); Bilirubin,Total 0.9 MG/DL (0.2-1.0); Calcium 8.7 MG/DL (8.5-10.1); Osmolality,Calculated 277.7 MOS/KG (273-304); Potassium 4.4 MMOL/L (3.5-5.1); Total Protein 6.6 G/DL (6.4-8.2)
[2020-12-01 13:57] LABS: Eosinophils 2 % (0-10); Lymphocytes 7 % (20-55); Segmented Neutrophils 87 % (50-85); Total Cells Counted 100
[2020-12-01 13:58] LABS: Macrocytosis Slight
[2020-12-01 13:59] LABS: Anisocytosis Slight; Platelet Estimate Adequate
[2020-12-01] MEDS ORDERED: ALBUTEROL 2.5 MG/3 ML NEB RESP TX STA (14:25)
[2020-12-01] MEDS ORDERED: FUROSEMIDE 100 MG/10 ML VIAL IV STA (15:34)
[2020-12-01 15:42] LABS: Bacteria,Urine Occasional /HPF (Few); Bilirubin,Urine Negative (Negative); Blood, Urine Negative (Negative); Glucose,Urine (UA) Negative (Negative); Ketones,Urine Negative (Negative); Nitrite,Urine Negative (Negative); Protein,Urine Negative; RBC,Urine 1 /HPF (0-4); Squamous Epithelial Cell,Urine Occasional /HPF (0-10); Urine Appearance CLEAR (Clear); Urine Color Straw (Yellow); Urine Specific Gravity 1.006 (1.001-1.035); Urine Urobilinogen < 2.0 EU/DL (0.2-1.0)
[2020-12-01] MEDS ORDERED: GLUCAGON 1 MG VIAL IM PRN (16:01)
[2020-12-01] MEDS ORDERED: ONDANSETRON 4 MG/2 ML VIAL IV PRN (16:01)
[2020-12-01] MEDS ORDERED: hydrALAZINE 20 MG/1 ML VIAL IV PRN (16:01)
[2020-12-01] MEDS ORDERED: DEXTROSE 50% 25 GM/50 ML VIAL IV PRN (16:01)
[2020-12-01] MEDS ORDERED: ACETAMINOPHEN 500 MG TABLET PO STA (16:43)
[2020-12-01] MEDS ORDERED: ACETAMINOPHEN 500 MG TABLET ONE (16:44)
[2020-12-01] MEDS: carvediloL 25 MG TABLET PO SCH (17:44)
[2020-12-01] MEDS: ALBUTEROL 2.5 MG/3 ML NEB RESP TX SCH (19:35)
[2020-12-01] MEDS: MAGNESIUM OXIDE 400 MG TABLET PO SCH (20:43)
[2020-12-01] MEDS ORDERED: DOXAZOSIN 1 MG TABLET PO SCH (21:00)
[2020-12-01] MEDS ORDERED: ENOXAPARIN 40 MG/0.4 ML SYRINGE SUBCUT SCH (21:00)
[2020-12-02] MEDS: ALBUTEROL 2.5 MG/3 ML NEB RESP TX SCH ×2 (01:28→06:50)
[2020-12-02 06:11] LABS: Basophils # 0.1 10*3/uL (0.0-0.2); Basophils % 0.6 % (0.0-0.8); Eosinophils # 0.2 10*3/uL (0.0-0.87); Eosinophils % 1.8 % (0.00-10.9); Hematocrit 35.9 VOL% (42.0-52.0); Immature Granulocytes % 1.6 %; Immature Granulocytes Absolute 0.19 #; Lymphocytes # 0.7 10*3/uL (1.4-4.0); Lymphocytes % 5.4 % (21.2-54.2); Mean Corpuscular HGB Conc 33.4 GM/DL (32-36); Mean Corpuscular Volume 98.1 FL (87-102); Mean Platelet Volume 12.1 FL (9.6-12.0); Monocytes % 3.4 % (1.7-12.7); NRBC # 0.03 10*3/uL; Neutrophils % 87.2 % (38.7-73.9); Platelet Count 240 T/CUMM (130-400); Red Blood Count 3.66 MC/CUMM (3.8-5.5); White Blood Count 12.2 T/CUMM (4-12)
[2020-12-02 06:36] LABS: Calcium 8.5 MG/DL (8.5-10.1); Osmolality,Calculated 282.4 MOS/KG (273-304); Potassium 3.6 MMOL/L (3.5-5.1); Risk Ratio 3.07; VLDL CHOLESTEROL 15.8 MG/DL
[2020-12-02 07:54] VITALS: BP 122/64
[2020-12-02] MEDS ORDERED: amLODIPine 5 MG TABLET PO SCH (09:00)
[2020-12-02] MEDS: MAGNESIUM OXIDE 400 MG TABLET PO SCH (09:00)
[2020-12-02] MEDS ORDERED: FUROSEMIDE 40 MG/4 ML VIAL IV SCH (09:00)
[2020-12-02] MEDS: carvediloL 25 MG TABLET PO SCH (09:00)
[2020-12-02] MEDS ORDERED: ASPIRIN EC 81 MG TABLET PO SCH (09:00)
[2020-12-02] MEDS ORDERED: PANTOPRAZOLE 40 MG TABLET PO SCH (09:00)
[2020-12-02 09:50] LABS: Band Neutrophils 4 % (0-10); Eosinophils 1 % (0-10); Lymphocytes 4 % (20-55); Metamyelocytes 2 %; Platelet Estimate Normal; Segmented Neutrophils 86 % (50-85); Total Cells Counted 100
== END 2020-12-02 11:30 | disposition home or self-care (01) ==
LOC: N.ED 13:00 → N.EDINP 13:00 → N.TELES 17:13
PROVIDERS: ADMIT Internal Medicine; ATTEND Internal Medicine

== ENCOUNTER 2021-07-09 11:45 | Inpatient (IN) ==
[2021-07-09 13:24] LABS: Basophils # 0.1 10*3/uL (0.0-0.2); Basophils % 0.5 % (0.0-0.8); Eosinophils # 0.1 10*3/uL (0.0-0.87); Eosinophils % 0.3 % (0.00-10.9); Hematocrit 52.3 VOL% (42.0-52.0); Hemoglobin 16.5 GM/DL (14.0-18.0); Immature Granulocytes % 3.5 %; Immature Granulocytes Absolute 1.01 #; Lymphocytes # 0.6 10*3/uL (1.4-4.0); Lymphocytes % 2.2 % (21.2-54.2); Mean Corpuscular HGB Conc 31.5 GM/DL (32-36); Monocytes % 2.3 % (1.7-12.7); NRBC # 0.04 10*3/uL; Neutrophils % 91.2 % (38.7-73.9); Platelet Count 569 T/CUMM (130-400); Red Blood Count 5.45 MC/CUMM (3.8-5.5); Red Cell Distribution Width 17.2 % (9.3-17.3); White Blood Count 28.7 T/CUMM (4-12)
[2021-07-09 13:53] LABS: Band Neutrophils 11 % (0-10); Lymphocytes 1 % (20-55); Segmented Neutrophils 85 % (50-85); Total Cells Counted 100
[2021-07-09 13:54] LABS: Polychromasia Few; Reactive Lymphocytes Few
[2021-07-09 13:55] LABS: Ovalocytes Slight
[2021-07-09 13:56] LABS: Microcytosis Slight; Platelet Estimate Adequate; Spherocytes Slight
[2021-07-09 14:58] LABS: Albumin 4.1 G/DL (3.4-5.0); Bilirubin,Total 1.2 MG/DL (0.20-1.00); Calcium 10.4 MG/DL (8.5-10.1); Osmolality,Calculated 290.8 MOS/KG (273-304); Potassium 4.6 MMOL/L (3.5-5.1); Total Protein 8.2 G/DL (6.4-8.2)
[2021-07-09] MEDS ORDERED: SODIUM CHLORIDE 0.9% 2,000 ML IV STA (15:25)
[2021-07-09] MEDS ORDERED: AMPICILLIN/SULBACTAM 3,000 MG in SODIUM CHLORIDE 0.9% 100 ML IV STA (15:26)
[2021-07-09] MEDS ORDERED: ONDANSETRON 4 MG/2 ML VIAL ONE (15:26)
[2021-07-09] MEDS ORDERED: HYDROmorphone 2 MG/1 ML VIAL IV STA ×2 (15:26→17:30)
[2021-07-09] MEDS ORDERED: HYDROmorphone 2 MG/1 ML VIAL ONE (15:27)
[2021-07-09] MEDS ORDERED: ONDANSETRON 4 MG/2 ML VIAL IV STA (15:27)
[2021-07-09] MEDS ORDERED: BENZOCAINE/BUTAMBEN/TETRACAINE SPRAY 20 GM CAN TOP ONE (15:51)
[2021-07-09] MEDS ORDERED: propofoL 200 MG/20 ML VIAL IV ONE ×3 (15:51→19:08)
[2021-07-09] MEDS ORDERED: ONDANSETRON 4 MG/2 ML VIAL IV PRN ×3 (15:55→20:36)
[2021-07-09] MEDS ORDERED: ACETAMINOPHEN 325 MG TABLET PO PRN (15:55)
[2021-07-09] MEDS ORDERED: ALBUTEROL/IPRATROPIUM 3 ML NEB RESP TX PRN (15:55)
[2021-07-09] MEDS ORDERED: HYDROmorphone 2 MG/1 ML VIAL IV PRN (15:55)
[2021-07-09] MEDS ORDERED: LACTATED RINGERS 1,000 ML IV SCH ×2 (16:00→20:36)
[2021-07-09] MEDS ORDERED: ceFAZolin 2,000 MG/50 ML DUPLEX IV ONE (16:28)
[2021-07-09] MEDS ORDERED: LACTATED RINGERS 1,000 ML IV ONE ×5 (16:30→22:47)
[2021-07-09] MEDS ORDERED: SEVOFLURANE 1 UNIT/15 MINUTE INH ONE ×8 (16:34→19:45)
[2021-07-09] MEDS ORDERED: fentaNYL 100 MCG/2 ML VIAL ONE (16:34)
[2021-07-09] MEDS ORDERED: ROCURONIUM 50 MG/5 ML VIAL IV ONE (16:34)
[2021-07-09] MEDS ORDERED: LIDOCAINE 2% 5 ML VIAL ONE (16:34)
[2021-07-09] MEDS ORDERED: TISSUE ADHESIVE 1 EACH APPLICATOR TOP ONE (16:48)
[2021-07-09] MEDS ORDERED: BUPIVACAINE MPF 0.25% 30 ML VIAL ONE (16:48)
[2021-07-09] MEDS ORDERED: LIDOCAINE 1%/EPI INJ 20 ML VIAL ONE (16:48)
[2021-07-09] MEDS ORDERED: GLUCAGON 1 MG VIAL IM PRN (17:47)
[2021-07-09] MEDS ORDERED: HEPARIN/NACL 0.9% 2 UNITS/ML 1,000 UNIT/500 ML BAG IV ONE (18:21)
[2021-07-09] MEDS ORDERED: DEXTROSE 50% 25 GM/50 ML SYRINGE IV PRN (18:30)
[2021-07-09] MEDS ORDERED: DILTIAZEM 50 MG/10 ML VIAL IV ONE (18:33)
[2021-07-09] MEDS ORDERED: KETAMINE 500 MG/10 ML VIAL ONE (18:49)
[2021-07-09] MEDS ORDERED: SODIUM CHLORIDE 0.9% 250 ML IV ONE (19:08)
[2021-07-09] MEDS ORDERED: PHENYLEPHRINE 1 MG/10 ML SYRINGE IV ONE (19:08)
[2021-07-09] MEDS ORDERED: ESMOLOL 100 MG/10 ML VIAL IV ONE (19:08)
[2021-07-09 19:40] LABS: Bacteria,Urine Occasional /HPF (Few); Bilirubin,Urine Negative (Negative); Blood, Urine Negative (Negative); Glucose,Urine (UA) Negative (Negative); Hyaline Casts,Urine 33 /LPF (0-3); Ketones,Urine 5 mg/dL (Negative); Mucus,Urine Occasional /LPF (Occasional); Nitrite,Urine Negative (Negative); Protein,Urine 30 MG/DL; RBC,Urine 3 /HPF (0-4); Squamous Epithelial Cell,Urine Occasional /HPF (0-10); Urine Appearance Slightly Hazy (Clear); Urine Color Amber (Yellow); Urine Specific Gravity 1.024 (1.001-1.035); Urine Urobilinogen < 2.0 EU/DL (0.2-1.0)
[2021-07-09] MEDS ORDERED: SUGAMMADEX 200 MG/2 ML VIAL IV ONE (19:41)
[2021-07-09] MEDS: DILTIAZEM INJ 100 MG in SODIUM CHLORIDE 0.9% 100 ML IV SCH (20:05)
[2021-07-09] MEDS: HYDROmorphone 2 MG/1 ML VIAL IV PRN ×7 (20:20→22:32)
[2021-07-09] MEDS ORDERED: PROMETHAZINE 25 MG/1 ML VIAL IM PRN (20:36)
[2021-07-09] MEDS ORDERED: amLODIPine 5 MG TABLET PO SCH (21:00)
[2021-07-09] MEDS: carvediloL 25 MG TABLET PO SCH (21:13)
[2021-07-09] MEDS: PIPERACILLIN/TAZOBACTAM 3,375 MG in SODIUM CHLORIDE 0.9% 100 ML IV SCH (21:14)
[2021-07-09] MEDS: MAGNESIUM OXIDE 400 MG TABLET PO SCH (21:26)
[2021-07-09] MEDS: INSULIN REGULAR 100 UNIT/ML SUBCUT SCH (21:27)
[2021-07-09 21:46] LABS: Basophils # 0.1 10*3/uL (0.0-0.2); Basophils % 0.6 % (0.0-0.8); Eosinophils # 0.2 10*3/uL (0.0-0.87); Eosinophils % 0.8 % (0.00-10.9); Hemoglobin 13.3 GM/DL (14.0-18.0); Immature Granulocytes % 1.9 %; Immature Granulocytes Absolute 0.42 #; Lymphocytes # 0.6 10*3/uL (1.4-4.0); Lymphocytes % 2.6 % (21.2-54.2); Mean Corpuscular HGB Conc 31.7 GM/DL (32-36); Mean Corpuscular Volume 97.2 FL (87-102); Mean Platelet Volume 11.7 FL (9.6-12.0); Monocytes % 2.8 % (1.7-12.7); NRBC # 0.03 10*3/uL; Neutrophils % 91.3 % (38.7-73.9); Platelet Count 443 T/CUMM (130-400); Red Blood Count 4.32 MC/CUMM (3.8-5.5); Red Cell Distribution Width 16.6 % (9.3-17.3); White Blood Count 22.4 T/CUMM (4-12)
[2021-07-09 22:03] LABS: Calcium 8.1 MG/DL (8.5-10.1); Osmolality,Calculated 294.3 MOS/KG (273-304); Potassium 3.7 MMOL/L (3.5-5.1)
[2021-07-09 23:17] LABS: Band Neutrophils 8 % (0-10); Eosinophils 1 % (0-10); Lymphocytes 3 % (20-55); Metamyelocytes 4 %; Segmented Neutrophils 82 % (50-85); Total Cells Counted 100
[2021-07-09 23:25] LABS: Hypochromasia 1+; Platelet Estimate Normal; Tear Drop Cells Few
[2021-07-09 23:26] LABS: Polychromasia Few
[2021-07-10] MEDS: INSULIN REGULAR 100 UNIT/ML SUBCUT SCH ×3 (00:14→12:49)
[2021-07-10] MEDS: PIPERACILLIN/TAZOBACTAM 3,375 MG in SODIUM CHLORIDE 0.9% 100 ML IV SCH ×3 (00:56→16:37)
[2021-07-10] MEDS: HYDROmorphone 2 MG/1 ML VIAL IV PRN ×5 (01:09→15:36)
[2021-07-10] MEDS ORDERED: LACTATED RINGERS 1,000 ML IV ONE ×2 (02:21→14:09)
[2021-07-10 03:51] LABS: Basophils # 0.1 10*3/uL (0.0-0.2); Basophils % 0.4 % (0.0-0.8); Eosinophils # 0.3 10*3/uL (0.0-0.87); Eosinophils % 1.1 % (0.00-10.9); Hematocrit 37.3 VOL% (42.0-52.0); Hemoglobin 11.7 GM/DL (14.0-18.0); Immature Granulocytes % 2.2 %; Immature Granulocytes Absolute 0.52 #; Lymphocytes # 0.5 10*3/uL (1.4-4.0); Lymphocytes % 2.1 % (21.2-54.2); Mean Corpuscular HGB Conc 31.4 GM/DL (32-36); Mean Corpuscular Volume 97.4 FL (87-102); Mean Platelet Volume 11.1 FL (9.6-12.0); Monocytes % 2.5 % (1.7-12.7); NRBC # 0.02 10*3/uL; Neutrophils % 91.7 % (38.7-73.9); Platelet Count 379 T/CUMM (130-400); Red Blood Count 3.83 MC/CUMM (3.8-5.5); Red Cell Distribution Width 16.8 % (9.3-17.3)
[2021-07-10 04:09] LABS: Calcium 7.8 MG/DL (8.5-10.1); Osmolality,Calculated 295.8 MOS/KG (273-304); Potassium 3.9 MMOL/L (3.5-5.1)
[2021-07-10 04:14] LABS: Band Neutrophils 5 % (0-10); Eosinophils 1 % (0-10); Hypochromasia Slight; Lymphocytes 1 % (20-55); Segmented Neutrophils 90 % (50-85); Total Cells Counted 100
[2021-07-10 04:15] LABS: Microcytosis 1+; Ovalocytes Few; Platelet Estimate Normal
[2021-07-10 04:16] LABS: Anisocytosis 1+
[2021-07-10] MEDS: DILTIAZEM INJ 100 MG in SODIUM CHLORIDE 0.9% 100 ML IV SCH ×2 (04:45→18:01)
[2021-07-10] MEDS: LACTATED RINGERS 1,000 ML IV SCH ×6 (07:41→23:37)
[2021-07-10] MEDS: ASPIRIN EC 81 MG TABLET PO SCH (08:01)
[2021-07-10] MEDS: PANTOPRAZOLE 40 MG VIAL IV SCH (08:01)
[2021-07-10] MEDS: TAMSULOSIN 0.4 MG CAPSULE PO SCH (08:01)
[2021-07-10] MEDS: carvediloL 25 MG TABLET PO SCH ×2 (08:01→16:24)
[2021-07-10] MEDS: MAGNESIUM OXIDE 400 MG TABLET PO SCH ×2 (08:02→21:26)
[2021-07-10] MEDS ORDERED: PANTOPRAZOLE 40 MG VIAL IV SCH (09:00)
[2021-07-10] MEDS ORDERED: ALBUMIN 25% 25 GM/100 ML VIAL IV ONE (09:40)
[2021-07-10] MEDS: ENOXAPARIN 40 MG/0.4 ML SYRINGE SUBCUT SCH (14:28)
[2021-07-10] MEDS: ALBUTEROL/IPRATROPIUM 3 ML NEB RESP TX SCH (23:00)
[2021-07-11] MEDS: LACTATED RINGERS 1,000 ML IV SCH ×5 (01:42→20:21)
[2021-07-11] MEDS: PIPERACILLIN/TAZOBACTAM 3,375 MG in SODIUM CHLORIDE 0.9% 100 ML IV SCH ×3 (01:56→17:24)
[2021-07-11] MEDS: ALBUTEROL/IPRATROPIUM 3 ML NEB RESP TX SCH ×5 (03:00→19:19)
[2021-07-11 05:27] LABS: Basophils # 0.1 10*3/uL (0.0-0.2); Basophils % 0.3 % (0.0-0.8); Eosinophils # 0.4 10*3/uL (0.0-0.87); Eosinophils % 1.9 % (0.00-10.9); Hematocrit 33.5 VOL% (42.0-52.0); Hemoglobin 10.3 GM/DL (14.0-18.0); Immature Granulocytes % 1.9 %; Immature Granulocytes Absolute 0.37 #; Lymphocytes # 0.5 10*3/uL (1.4-4.0); Lymphocytes % 2.8 % (21.2-54.2); Mean Corpuscular HGB Conc 30.7 GM/DL (32-36); Mean Platelet Volume 11.7 FL (9.6-12.0); Monocytes % 2.6 % (1.7-12.7); Neutrophils % 90.5 % (38.7-73.9); Platelet Count 330 T/CUMM (130-400); Red Blood Count 3.35 MC/CUMM (3.8-5.5); Red Cell Distribution Width 16.8 % (9.3-17.3); White Blood Count 19.2 T/CUMM (4-12)
[2021-07-11 05:50] LABS: Band Neutrophils 2 % (0-10); Eosinophils 1 % (0-10); Hypochromasia 1+; Lymphocytes 1 % (20-55); Microcytosis 1+; Platelet Estimate Adequate; Segmented Neutrophils 94 % (50-85); Total Cells Counted 100
[2021-07-11 05:54] LABS: Calcium 8.3 MG/DL (8.5-10.1); Osmolality,Calculated 291.4 MOS/KG (273-304); Potassium 3.8 MMOL/L (3.5-5.1)
[2021-07-11] MEDS: MAGNESIUM OXIDE 400 MG TABLET PO SCH ×2 (08:44→21:17)
[2021-07-11] MEDS: carvediloL 25 MG TABLET PO SCH ×2 (08:44→16:50)
[2021-07-11] MEDS: ASPIRIN EC 81 MG TABLET PO SCH (08:44)
[2021-07-11] MEDS: PANTOPRAZOLE 40 MG VIAL IV SCH (08:44)
[2021-07-11] MEDS: TAMSULOSIN 0.4 MG CAPSULE PO SCH (08:44)
[2021-07-11] MEDS: HYDROmorphone 2 MG/1 ML VIAL IV PRN (13:30)
[2021-07-11] MEDS: ENOXAPARIN 40 MG/0.4 ML SYRINGE SUBCUT SCH (15:06)
[2021-07-12] MEDS: LACTATED RINGERS 1,000 ML IV SCH ×2 (00:31→04:58)
[2021-07-12] MEDS: PIPERACILLIN/TAZOBACTAM 3,375 MG in SODIUM CHLORIDE 0.9% 100 ML IV SCH ×3 (02:15→16:38)
[2021-07-12 05:33] LABS: Calcium 8.6 MG/DL (8.5-10.1); Osmolality,Calculated 288.4 MOS/KG (273-304); Potassium 3.9 MMOL/L (3.5-5.1)
[2021-07-12 05:34] LABS: Anisocytosis 1+; Hypochromasia Slight
[2021-07-12 05:55] LABS: Basophils # 0.1 10*3/uL (0.0-0.2); Basophils % 0.4 % (0.0-0.8); Eosinophils # 0.5 10*3/uL (0.0-0.87); Eosinophils % 2.7 % (0.00-10.9); Hematocrit 36.5 VOL% (42.0-52.0); Immature Granulocytes % 1.7 %; Immature Granulocytes Absolute 0.31 #; Lymphocytes # 0.7 10*3/uL (1.4-4.0); Lymphocytes % 3.5 % (21.2-54.2); Mean Corpuscular HGB Conc 30.1 GM/DL (32-36); Mean Corpuscular Volume 102.2 FL (87-102); Mean Platelet Volume 11.9 FL (9.6-12.0); Monocytes % 2.5 % (1.7-12.7); Neutrophils % 89.2 % (38.7-73.9); Platelet Count 315 T/CUMM (130-400); Red Blood Count 3.57 MC/CUMM (3.8-5.5); Red Cell Distribution Width 16.5 % (9.3-17.3); White Blood Count 18.5 T/CUMM (4-12)
[2021-07-12 06:08] LABS: Band Neutrophils 2 % (0-10); Eosinophils 5 % (0-10); Lymphocytes 4 % (20-55); Nucleated Red Blood Cells 8 (0-5); Platelet Estimate Increased; Segmented Neutrophils 84 % (50-85); Total Cells Counted 100
[2021-07-12] MEDS: carvediloL 25 MG TABLET PO SCH ×2 (09:25→17:32)
[2021-07-12] MEDS: TAMSULOSIN 0.4 MG CAPSULE PO SCH (09:25)
[2021-07-12] MEDS: MAGNESIUM OXIDE 400 MG TABLET PO SCH ×2 (09:26→21:10)
[2021-07-12] MEDS: ASPIRIN EC 81 MG TABLET PO SCH (09:26)
[2021-07-12] MEDS: PANTOPRAZOLE 40 MG VIAL IV SCH (09:33)
[2021-07-12] MEDS: DEXT 5% NACL 0.45% KCL 40 MEQ 40 MEQ/1,000 ML BAG IV SCH ×2 (10:04→16:49)
[2021-07-12] MEDS: ALBUTEROL/IPRATROPIUM 3 ML NEB RESP TX SCH ×5 (11:43→20:18)
[2021-07-12] MEDS: ENOXAPARIN 40 MG/0.4 ML SYRINGE SUBCUT SCH (14:58)
[2021-07-12] MEDS: HYDROmorphone 2 MG/1 ML VIAL IV PRN (17:36)
[2021-07-13] MEDS: DEXT 5% NACL 0.45% KCL 40 MEQ 40 MEQ/1,000 ML BAG IV SCH ×4 (00:53→23:25)
[2021-07-13] MEDS: PIPERACILLIN/TAZOBACTAM 3,375 MG in SODIUM CHLORIDE 0.9% 100 ML IV SCH ×3 (01:03→16:52)
[2021-07-13] MEDS: ALBUTEROL/IPRATROPIUM 3 ML NEB RESP TX SCH ×7 (04:00→23:14)
[2021-07-13 07:22] LABS: White Blood Count 14.5 T/CUMM (4-12)
[2021-07-13 07:59] LABS: Calcium 8.7 MG/DL (8.5-10.1); Osmolality,Calculated 293.4 MOS/KG (273-304); Potassium 4.2 MMOL/L (3.5-5.1)
[2021-07-13 09:33] LABS: Anisocytosis 1+; Ovalocytes Few; Platelet Estimate Normal; Polychromasia Slight; Tear Drop Cells Few
[2021-07-13] MEDS: MAGNESIUM OXIDE 400 MG TABLET PO SCH ×2 (10:26→20:19)
[2021-07-13] MEDS: TAMSULOSIN 0.4 MG CAPSULE PO SCH (10:27)
[2021-07-13] MEDS: carvediloL 25 MG TABLET PO SCH ×2 (10:27→16:50)
[2021-07-13] MEDS: ASPIRIN EC 81 MG TABLET PO SCH (10:27)
[2021-07-13] MEDS: PANTOPRAZOLE 40 MG VIAL IV SCH (10:30)
[2021-07-13 10:34] LABS: Basophils # 0.1 10*3/uL (0.0-0.2); Basophils % 0.5 % (0.0-0.8); Eosinophils # 0.7 10*3/uL (0.0-0.87); Eosinophils % 4.4 % (0.00-10.9); Hematocrit 37.5 VOL% (42.0-52.0); Immature Granulocytes % 1.5 %; Immature Granulocytes Absolute 0.23 #; Lymphocytes # 0.5 10*3/uL (1.4-4.0); Lymphocytes % 3.2 % (21.2-54.2); Mean Corpuscular HGB Conc 29.3 GM/DL (32-36); Mean Corpuscular Volume 102.7 FL (87-102); Mean Platelet Volume 11.7 FL (9.6-12.0); Monocytes % 2.4 % (1.7-12.7); Platelet Count 312 T/CUMM (130-400); Red Blood Count 3.65 MC/CUMM (3.8-5.5); Red Cell Distribution Width 15.9 % (9.3-17.3)
[2021-07-13 12:20] LABS: Eosinophils 5 % (0-10); Lymphocytes 7 % (20-55); Segmented Neutrophils 88 % (50-85); Total Cells Counted 100
[2021-07-13] MEDS: ENOXAPARIN 40 MG/0.4 ML SYRINGE SUBCUT SCH (14:17)
[2021-07-13] MEDS: HYDROmorphone 2 MG/1 ML VIAL IV PRN ×2 (16:51→23:57)
[2021-07-14] MEDS: ALBUTEROL/IPRATROPIUM 3 ML NEB RESP TX SCH ×6 (03:00→23:09)
[2021-07-14] MEDS ORDERED: COLCHICINE 0.6 MG CAPSULE PO ONE (13:04)
[2021-07-14 13:26] LABS: Basophils # 0.1 10*3/uL (0.0-0.2); Basophils % 0.6 % (0.0-0.8); Eosinophils # 0.8 10*3/uL (0.0-0.87); Eosinophils % 6.2 % (0.00-10.9); Hematocrit 35.1 VOL% (42.0-52.0); Hemoglobin 10.3 GM/DL (14.0-18.0); Immature Granulocytes % 1.8 %; Immature Granulocytes Absolute 0.22 #; Lymphocytes # 0.7 10*3/uL (1.4-4.0); Lymphocytes % 5.8 % (21.2-54.2); Mean Corpuscular HGB Conc 29.3 GM/DL (32-36); Mean Corpuscular Volume 100.3 FL (87-102); Mean Platelet Volume 12.1 FL (9.6-12.0); Monocytes % 2.7 % (1.7-12.7); Neutrophils % 82.9 % (38.7-73.9); Platelet Count 276 T/CUMM (130-400); Red Cell Distribution Width 15.9 % (9.3-17.3); White Blood Count 12.3 T/CUMM (4-12)
[2021-07-14] MEDS: PIPERACILLIN/TAZOBACTAM 3,375 MG in SODIUM CHLORIDE 0.9% 100 ML IV SCH ×2 (13:46→16:05)
[2021-07-14] MEDS: carvediloL 25 MG TABLET PO SCH ×2 (13:47→16:05)
[2021-07-14] MEDS: DEXT 5% NACL 0.45% KCL 40 MEQ 40 MEQ/1,000 ML BAG IV SCH ×4 (13:47→23:37)
[2021-07-14] MEDS: MAGNESIUM OXIDE 400 MG TABLET PO SCH ×2 (13:47→21:17)
[2021-07-14] MEDS: TAMSULOSIN 0.4 MG CAPSULE PO SCH (13:47)
[2021-07-14] MEDS: ASPIRIN EC 81 MG TABLET PO SCH (13:47)
[2021-07-14] MEDS: PANTOPRAZOLE 40 MG VIAL IV SCH (13:48)
[2021-07-14 14:02] LABS: Calcium 8.5 MG/DL (8.5-10.1)
[2021-07-14 14:03] LABS: Osmolality,Calculated 292.3 MOS/KG (273-304); Potassium 4.1 MMOL/L (3.5-5.1)
[2021-07-14] MEDS: ENOXAPARIN 40 MG/0.4 ML SYRINGE SUBCUT SCH (14:37)
[2021-07-14 17:25] LABS: Band Neutrophils 1 % (0-10); Eosinophils 3 % (0-10); Lymphocytes 9 % (20-55); Segmented Neutrophils 87 % (50-85); Total Cells Counted 100
[2021-07-14 17:26] LABS: Platelet Estimate Normal; Polychromasia Slight; Tear Drop Cells Few
[2021-07-14] MEDS: COLCHICINE 0.6 MG CAPSULE PO SCH (21:17)
[2021-07-15] MEDS: PIPERACILLIN/TAZOBACTAM 3,375 MG in SODIUM CHLORIDE 0.9% 100 ML IV SCH ×3 (01:26→22:52)
[2021-07-15] MEDS: ALBUTEROL/IPRATROPIUM 3 ML NEB RESP TX SCH ×6 (03:07→23:15)
[2021-07-15 06:36] LABS: Calcium 7.9 MG/DL (8.5-10.1); Osmolality,Calculated 288.4 MOS/KG (273-304); Potassium 4.5 MMOL/L (3.5-5.1)
[2021-07-15 07:37] LABS: Basophils # 0.1 10*3/uL (0.0-0.2); Basophils % 0.6 % (0.0-0.8); Eosinophils # 0.9 10*3/uL (0.0-0.87); Eosinophils % 4.9 % (0.00-10.9); Hematocrit 41.9 VOL% (42.0-52.0); Immature Granulocytes Absolute 0.56 #; Lymphocytes # 0.8 10*3/uL (1.4-4.0); Lymphocytes % 4.3 % (21.2-54.2); Mean Corpuscular HGB Conc 30.1 GM/DL (32-36); Mean Corpuscular Volume 101.9 FL (87-102); Monocytes % 1.9 % (1.7-12.7); Neutrophils % 85.3 % (38.7-73.9); Platelet Count 342 T/CUMM (130-400); Red Blood Count 4.11 MC/CUMM (3.8-5.5); Red Cell Distribution Width 15.9 % (9.3-17.3); White Blood Count 18.7 T/CUMM (4-12)
[2021-07-15 07:39] LABS: Hemoglobin 12.6 GM/DL (14.0-18.0)
[2021-07-15 07:48] LABS: Eosinophils 8 % (0-10); Lymphocytes 2 % (20-55); Platelet Estimate Adequate; Segmented Neutrophils 88 % (50-85); Total Cells Counted 100
[2021-07-15] MEDS: PANTOPRAZOLE 40 MG VIAL IV SCH (09:31)
[2021-07-15] MEDS: COLCHICINE 0.6 MG CAPSULE PO SCH ×2 (12:53→22:47)
[2021-07-15] MEDS: carvediloL 25 MG TABLET PO SCH ×2 (12:53→17:58)
[2021-07-15] MEDS: MAGNESIUM OXIDE 400 MG TABLET PO SCH ×2 (12:53→22:47)
[2021-07-15] MEDS: ASPIRIN EC 81 MG TABLET PO SCH (12:53)
[2021-07-15] MEDS: TAMSULOSIN 0.4 MG CAPSULE PO SCH (12:53)
[2021-07-15] MEDS: ENOXAPARIN 40 MG/0.4 ML SYRINGE SUBCUT SCH (16:31)
[2021-07-15] MEDS: DEXT 5% NACL 0.45% KCL 40 MEQ 40 MEQ/1,000 ML BAG IV SCH (18:01)
[2021-07-16] MEDS: ALBUTEROL/IPRATROPIUM 3 ML NEB RESP TX SCH ×6 (03:10→23:15)
[2021-07-16] MEDS: PIPERACILLIN/TAZOBACTAM 3,375 MG in SODIUM CHLORIDE 0.9% 100 ML IV SCH (07:34)
[2021-07-16 08:28] LABS: Basophils # 0.1 10*3/uL (0.0-0.2); Basophils % 0.6 % (0.0-0.8); Eosinophils # 0.8 10*3/uL (0.0-0.87); Eosinophils % 5.1 % (0.00-10.9); Hematocrit 37.2 VOL% (42.0-52.0); Hemoglobin 11.3 GM/DL (14.0-18.0); Immature Granulocytes % 3.8 %; Immature Granulocytes Absolute 0.59 #; Lymphocytes # 0.9 10*3/uL (1.4-4.0); Lymphocytes % 5.8 % (21.2-54.2); Mean Corpuscular HGB Conc 30.4 GM/DL (32-36); Mean Corpuscular Volume 99.5 FL (87-102); Monocytes % 2.5 % (1.7-12.7); Neutrophils % 82.2 % (38.7-73.9); Platelet Count 346 T/CUMM (130-400); Red Blood Count 3.74 MC/CUMM (3.8-5.5); Red Cell Distribution Width 15.7 % (9.3-17.3); White Blood Count 15.4 T/CUMM (4-12)
[2021-07-16 08:44] LABS: Calcium 8.6 MG/DL (8.5-10.1); Osmolality,Calculated 286.5 MOS/KG (273-304); Potassium 4.8 MMOL/L (3.5-5.1)
[2021-07-16 08:48] LABS: Band Neutrophils 8 % (0-10); Eosinophils 4 % (0-10); Hypochromasia 1+; Lymphocytes 4 % (20-55); Segmented Neutrophils 80 % (50-85); Total Cells Counted 100
[2021-07-16 08:49] LABS: Microcytosis 1+; Ovalocytes Few; Tear Drop Cells Slight
[2021-07-16 08:50] LABS: Platelet Estimate Normal
[2021-07-16] MEDS: TAMSULOSIN 0.4 MG CAPSULE PO SCH (09:42)
[2021-07-16] MEDS: PANTOPRAZOLE 40 MG VIAL IV SCH (09:42)
[2021-07-16] MEDS: MAGNESIUM OXIDE 400 MG TABLET PO SCH ×2 (09:42→21:23)
[2021-07-16] MEDS: COLCHICINE 0.6 MG CAPSULE PO SCH ×2 (09:43→21:23)
[2021-07-16] MEDS: ASPIRIN EC 81 MG TABLET PO SCH (09:43)
[2021-07-16] MEDS: carvediloL 25 MG TABLET PO SCH ×2 (09:45→16:46)
[2021-07-16] MEDS: DEXT 5% NACL 0.45% KCL 40 MEQ 40 MEQ/1,000 ML BAG IV SCH (11:39)
[2021-07-16] MEDS: ENOXAPARIN 40 MG/0.4 ML SYRINGE SUBCUT SCH (13:35)
[2021-07-17] MEDS: ALBUTEROL/IPRATROPIUM 3 ML NEB RESP TX SCH ×3 (03:33→12:13)
[2021-07-17 05:42] LABS: Basophils # 0.1 10*3/uL (0.0-0.2); Basophils % 0.6 % (0.0-0.8); Eosinophils # 0.8 10*3/uL (0.0-0.87); Eosinophils % 5.8 % (0.00-10.9); Hematocrit 33.9 VOL% (42.0-52.0); Hemoglobin 10.8 GM/DL (14.0-18.0); Immature Granulocytes % 5.6 %; Lymphocytes # 0.9 10*3/uL (1.4-4.0); Lymphocytes % 6.4 % (21.2-54.2); Mean Corpuscular HGB Conc 31.9 GM/DL (32-36); Mean Corpuscular Volume 96.9 FL (87-102); Monocytes % 2.4 % (1.7-12.7); NRBC # 0.02 10*3/uL; Neutrophils % 79.2 % (38.7-73.9); Platelet Count 386 T/CUMM (130-400); Red Cell Distribution Width 15.8 % (9.3-17.3); White Blood Count 14.4 T/CUMM (4-12)
[2021-07-17 05:59] LABS: Osmolality,Calculated 290.1 MOS/KG (273-304)
[2021-07-17 06:06] LABS: Band Neutrophils 7 % (0-10); Eosinophils 6 % (0-10); Hypochromasia 1+; Lymphocytes 10 % (20-55); Metamyelocytes 4 %; Microcytosis 1+; Ovalocytes Few; Promyelocytes 1 %; Segmented Neutrophils 71 % (50-85); Tear Drop Cells Slight; Total Cells Counted 100
[2021-07-17 08:39] VITALS: BP 134/68
[2021-07-17] MEDS: carvediloL 25 MG TABLET PO SCH (10:18)
[2021-07-17] MEDS: COLCHICINE 0.6 MG CAPSULE PO SCH (10:19)
[2021-07-17] MEDS: TAMSULOSIN 0.4 MG CAPSULE PO SCH (10:19)
[2021-07-17] MEDS: MAGNESIUM OXIDE 400 MG TABLET PO SCH (10:20)
[2021-07-17] MEDS: ASPIRIN EC 81 MG TABLET PO SCH (10:21)
[2021-07-17] MEDS: PANTOPRAZOLE 40 MG VIAL IV SCH (10:48)
== END 2021-07-17 12:05 | disposition home or self-care (01) | DRG 329 ==
LOC: N.ED 11:45 → N.EDINP 15:55 → N.CC 18:00 → N.3E 18:26 → N.TELEN 07-11 20:33
PROVIDERS: ADMIT Surgery; ATTEND Surgery

== ENCOUNTER 2021-09-26 10:35 | Inpatient (IN) ==
[2021-09-26 10:59] LABS: Basophils # 0.1 10*3/uL (0.0-0.2); Basophils % 0.6 % (0.0-0.8); Eosinophils # 0.5 10*3/uL (0.0-0.87); Eosinophils % 2.8 % (0.00-10.9); Hematocrit 37.7 VOL% (42.0-52.0); Hemoglobin 11.6 GM/DL (14.0-18.0); Immature Granulocytes % 2.8 %; Immature Granulocytes Absolute 0.51 #; Lymphocytes # 0.8 10*3/uL (1.4-4.0); Lymphocytes % 4.2 % (21.2-54.2); Mean Corpuscular HGB Conc 30.8 GM/DL (32-36); Mean Corpuscular Volume 92.9 FL (87-102); Mean Platelet Volume 11.6 FL (9.6-12.0); Monocytes % 2.9 % (1.7-12.7); NRBC # 0.02 10*3/uL; Neutrophils % 86.7 % (38.7-73.9); Platelet Count 398 T/CUMM (130-400); Red Blood Count 4.06 MC/CUMM (3.8-5.5); Red Cell Distribution Width 15.5 % (9.3-17.3); White Blood Count 18.5 T/CUMM (4-12)
[2021-09-26] MEDS ORDERED: LACTATED RINGERS 1,000 ML IV SCH (11:00)
[2021-09-26 11:22] LABS: Calcium 9.2 MG/DL (8.5-10.1); Osmolality,Calculated 280.2 MOS/KG (273-304)
[2021-09-26] MEDS ORDERED: BUPIVACAINE MPF 0.25% 30 ML VIAL ONE ×2 (11:52→12:39)
[2021-09-26] MEDS ORDERED: TISSUE ADHESIVE 1 EACH APPLICATOR TOP ONE (11:52)
[2021-09-26] MEDS ORDERED: ceFAZolin 1,000 MG VIAL ONE ×2 (11:53→12:17)
[2021-09-26] MEDS ORDERED: LIDOCAINE 1%/EPI INJ 20 ML VIAL ONE (11:53)
[2021-09-26] MEDS ORDERED: GABAPENTIN 400 MG CAPSULE PO ONE (11:54)
[2021-09-26] MEDS ORDERED: ACETAMINOPHEN 500 MG TABLET PO ONE (11:54)
[2021-09-26] MEDS ORDERED: FAMOTIDINE 20 MG TABLET PO ONE (11:54)
[2021-09-26] MEDS ORDERED: MIDAZOLAM 2 MG/2 ML VIAL ONE (12:24)
[2021-09-26] MEDS ORDERED: fentaNYL 100 MCG/2 ML VIAL ONE (12:24)
[2021-09-26] MEDS ORDERED: propofoL 200 MG/20 ML VIAL IV ONE (12:25)
[2021-09-26] MEDS ORDERED: ROCURONIUM 50 MG/5 ML VIAL IV ONE (12:25)
[2021-09-26] MEDS ORDERED: ETOMIDATE 40 MG/20 ML VIAL IV ONE (12:25)
[2021-09-26] MEDS ORDERED: LIDOCAINE 2% 5 ML VIAL ONE (12:25)
[2021-09-26 12:26] LABS: Band Neutrophils 1 % (0-10); Eosinophils 1 % (0-10); Lymphocytes 3 % (20-55); Segmented Neutrophils 94 % (50-85); Total Cells Counted 100
[2021-09-26 12:27] LABS: Ovalocytes Few; Platelet Estimate Normal; Polychromasia Slight; Schistocytes Few; Tear Drop Cells Few
[2021-09-26] MEDS ORDERED: DEXAMETHASONE 4 MG/1 ML VIAL ONE (12:40)
[2021-09-26] MEDS ORDERED: ePHEDrine 50 MG/ML VIAL ONE (13:51)
[2021-09-26] MEDS ORDERED: GLYCOPYRROLATE 0.4 MG/2 ML VIAL ONE (14:07)
[2021-09-26] MEDS ORDERED: NEOSTIGMINE 10 MG/10 ML VIAL ONE (14:08)
[2021-09-26] MEDS ORDERED: SEVOFLURANE 1 UNIT/15 MINUTE INH ONE (14:12)
[2021-09-26] MEDS ORDERED: ONDANSETRON 4 MG/2 ML VIAL IV PRN (17:51)
[2021-09-26] MEDS ORDERED: PROMETHAZINE 25 MG/1 ML VIAL IM PRN (17:51)
[2021-09-26] MEDS ORDERED: KETOROLAC 15 MG/1 ML VIAL IV PRN (17:51)
[2021-09-26] MEDS ORDERED: HYDROmorphone 2 MG/1 ML VIAL IV PRN (17:51)
[2021-09-26] MEDS: carvediloL 25 MG TABLET PO SCH (18:54)
[2021-09-26] MEDS: LACTATED RINGERS 1,000 ML IV SCH (19:44)
[2021-09-26] MEDS: ceFAZolin 2,000 MG/50 ML DUPLEX IV SCH (19:44)
[2021-09-26] MEDS: amLODIPine 5 MG TABLET PO SCH (20:38)
[2021-09-26] MEDS: MAGNESIUM OXIDE 400 MG TABLET PO SCH (20:38)
[2021-09-27] MEDS: ceFAZolin 2,000 MG/50 ML DUPLEX IV SCH ×3 (04:04→17:40)
[2021-09-27] MEDS: LACTATED RINGERS 1,000 ML IV SCH ×3 (04:05→21:51)
[2021-09-27 05:58] LABS: Calcium 8.6 MG/DL (8.5-10.1); Osmolality,Calculated 280.2 MOS/KG (273-304)
[2021-09-27 06:11] LABS: Basophils # 0.2 10*3/uL (0.0-0.2); Basophils % 0.7 % (0.0-0.8); Eosinophils # 0.4 10*3/uL (0.0-0.87); Eosinophils % 1.5 % (0.00-10.9); Hemoglobin 12.9 GM/DL (14.0-18.0); Immature Granulocytes % 2.5 %; Immature Granulocytes Absolute 0.57 #; Lymphocytes # 0.7 10*3/uL (1.4-4.0); Lymphocytes % 3.2 % (21.2-54.2); Mean Corpuscular HGB Conc 30.7 GM/DL (32-36); Mean Corpuscular Volume 94.2 FL (87-102); Mean Platelet Volume 12.3 FL (9.6-12.0); Monocytes % 2.4 % (1.7-12.7); Neutrophils % 89.7 % (38.7-73.9); Platelet Count 409 T/CUMM (130-400); Red Blood Count 4.46 MC/CUMM (3.8-5.5); Red Cell Distribution Width 15.5 % (9.3-17.3)
[2021-09-27 06:23] LABS: Band Neutrophils 3 % (0-10); Lymphocytes 1 % (20-55); Nucleated Red Blood Cells 1 (0-5); Platelet Estimate Adequate; Segmented Neutrophils 94 % (50-85); Total Cells Counted 100
[2021-09-27] MEDS: carvediloL 25 MG TABLET PO SCH ×2 (08:33→16:49)
[2021-09-27] MEDS: PANTOPRAZOLE 40 MG TABLET PO SCH (08:33)
[2021-09-27] MEDS: ASPIRIN EC 81 MG TABLET PO SCH (08:33)
[2021-09-27] MEDS: MAGNESIUM OXIDE 400 MG TABLET PO SCH ×2 (08:33→20:52)
[2021-09-27] MEDS: TAMSULOSIN 0.4 MG CAPSULE PO SCH (08:33)
[2021-09-27] MEDS: ENOXAPARIN 40 MG/0.4 ML SYRINGE SUBCUT SCH (08:34)
[2021-09-27] MEDS: amLODIPine 5 MG TABLET PO SCH (20:53)
[2021-09-28] MEDS: ceFAZolin 2,000 MG/50 ML DUPLEX IV SCH ×2 (01:05→09:32)
[2021-09-28] MEDS: LACTATED RINGERS 1,000 ML IV SCH ×2 (06:13→21:00)
[2021-09-28] MEDS: ENOXAPARIN 40 MG/0.4 ML SYRINGE SUBCUT SCH (09:31)
[2021-09-28] MEDS: MAGNESIUM OXIDE 400 MG TABLET PO SCH ×2 (09:32→20:55)
[2021-09-28] MEDS: ASPIRIN EC 81 MG TABLET PO SCH (09:32)
[2021-09-28] MEDS: PANTOPRAZOLE 40 MG TABLET PO SCH (09:32)
[2021-09-28] MEDS: carvediloL 25 MG TABLET PO SCH ×2 (09:32→16:05)
[2021-09-28] MEDS: TAMSULOSIN 0.4 MG CAPSULE PO SCH (11:33)
[2021-09-28] MEDS: cefOXitin 1,000 MG in SODIUM CHLORIDE 0.9% 100 ML IV SCH ×2 (12:12→20:55)
[2021-09-28] MEDS: amLODIPine 5 MG TABLET PO SCH (20:55)
[2021-09-29] MEDS: cefOXitin 1,000 MG in SODIUM CHLORIDE 0.9% 100 ML IV SCH ×3 (04:52→20:52)
[2021-09-29] MEDS: LACTATED RINGERS 1,000 ML IV SCH (04:53)
[2021-09-29 06:12] LABS: Calcium 8.3 MG/DL (8.5-10.1); Osmolality,Calculated 277.1 MOS/KG (273-304); Potassium 4.9 MMOL/L (3.5-5.1)
[2021-09-29 07:36] LABS: Basophils # 0.1 10*3/uL (0.0-0.2); Basophils % 0.5 % (0.0-0.8); Eosinophils # 0.6 10*3/uL (0.0-0.87); Eosinophils % 3.3 % (0.00-10.9); Hematocrit 35.7 VOL% (42.0-52.0); Immature Granulocytes % 2.4 %; Immature Granulocytes Absolute 0.45 #; Lymphocytes # 0.9 10*3/uL (1.4-4.0); Lymphocytes % 4.7 % (21.2-54.2); Mean Corpuscular HGB Conc 30.8 GM/DL (32-36); Mean Corpuscular Volume 92.7 FL (87-102); Mean Platelet Volume 12.2 FL (9.6-12.0); Monocytes % 1.7 % (1.7-12.7); NRBC # 0.02 10*3/uL; Neutrophils % 87.4 % (38.7-73.9); Platelet Count 373 T/CUMM (130-400); Red Blood Count 3.85 MC/CUMM (3.8-5.5); Red Cell Distribution Width 15.5 % (9.3-17.3); White Blood Count 18.5 T/CUMM (4-12)
[2021-09-29 08:15] LABS: Band Neutrophils 1 % (0-10); Eosinophils 5 % (0-10); Lymphocytes 4 % (20-55); Segmented Neutrophils 88 % (50-85); Total Cells Counted 100
[2021-09-29 08:16] LABS: Hypochromia 2+; Ovalocytes 1+; Platelet Estimate Normal; Tear Drop Cells Few
[2021-09-29] MEDS: ENOXAPARIN 40 MG/0.4 ML SYRINGE SUBCUT SCH (09:32)
[2021-09-29] MEDS: ASPIRIN EC 81 MG TABLET PO SCH (09:33)
[2021-09-29] MEDS: PANTOPRAZOLE 40 MG TABLET PO SCH (09:33)
[2021-09-29] MEDS: TAMSULOSIN 0.4 MG CAPSULE PO SCH (09:33)
[2021-09-29] MEDS: carvediloL 25 MG TABLET PO SCH ×2 (09:33→16:31)
[2021-09-29] MEDS: MAGNESIUM OXIDE 400 MG TABLET PO SCH ×2 (09:33→20:52)
[2021-09-29] MEDS ORDERED: LACTATED RINGERS 1,000 ML IV SCH (10:00)
[2021-09-29] MEDS ORDERED: FUROSEMIDE 40 MG/4 ML VIAL IV ONE (12:20)
[2021-09-29] MEDS: AZITHROMYCIN 250 MG TABLET PO SCH (14:16)
[2021-09-29] MEDS: amLODIPine 5 MG TABLET PO SCH (20:52)
[2021-09-30] MEDS: cefOXitin 1,000 MG in SODIUM CHLORIDE 0.9% 100 ML IV SCH (05:21)
[2021-09-30 06:59] LABS: Calcium 8.5 MG/DL (8.5-10.1); Osmolality,Calculated 282.5 MOS/KG (273-304); Potassium 4.3 MMOL/L (3.5-5.1)
[2021-09-30] MEDS ORDERED: cefTRIAXone 1,000 MG in SODIUM CHLORIDE 0.9% 100 ML IV SCH (09:00)
[2021-09-30] MEDS: carvediloL 25 MG TABLET PO SCH ×2 (09:28→17:36)
[2021-09-30] MEDS: PANTOPRAZOLE 40 MG TABLET PO SCH (09:28)
[2021-09-30] MEDS: AZITHROMYCIN 250 MG TABLET PO SCH (09:28)
[2021-09-30] MEDS: MAGNESIUM OXIDE 400 MG TABLET PO SCH ×2 (09:28→21:41)
[2021-09-30] MEDS: TAMSULOSIN 0.4 MG CAPSULE PO SCH (09:28)
[2021-09-30] MEDS: ASPIRIN EC 81 MG TABLET PO SCH (09:28)
[2021-09-30] MEDS: ENOXAPARIN 40 MG/0.4 ML SYRINGE SUBCUT SCH (10:30)
[2021-09-30 13:10] LABS: Hemoglobin 10.3 GM/DL (14.0-18.0); Mean Corpuscular HGB Conc 30.3 GM/DL (32-36); Mean Corpuscular Volume 93.4 FL (87-102); Mean Platelet Volume 11.9 FL (9.6-12.0); Platelet Count 336 T/CUMM (130-400); Red Blood Count 3.64 MC/CUMM (3.8-5.5); Red Cell Distribution Width 15.5 % (9.3-17.3); White Blood Count 14.2 T/CUMM (4-12)
[2021-09-30 13:11] LABS: Basophils # 0.2 10*3/uL (0.0-0.2); Basophils % 1.1 % (0.0-0.8); Eosinophils # 0.4 10*3/uL (0.0-0.87); Eosinophils % 3.1 % (0.00-10.9); Immature Granulocytes Absolute 0.28 #; Lymphocytes # 0.8 10*3/uL (1.4-4.0); Lymphocytes % 5.7 % (21.2-54.2); Monocytes % 2.3 % (1.7-12.7); Neutrophils % 85.8 % (38.7-73.9)
[2021-09-30] MEDS: amLODIPine 5 MG TABLET PO SCH (21:41)
[2021-10-01 06:39] LABS: Basophils # 0.1 10*3/uL (0.0-0.2); Basophils % 0.6 % (0.0-0.8); Eosinophils # 0.6 10*3/uL (0.0-0.87); Eosinophils % 3.4 % (0.00-10.9); Hematocrit 35.5 VOL% (42.0-52.0); Hemoglobin 11.1 GM/DL (14.0-18.0); Immature Granulocytes % 2.6 %; Immature Granulocytes Absolute 0.42 #; Lymphocytes # 0.9 10*3/uL (1.4-4.0); Lymphocytes % 5.7 % (21.2-54.2); Mean Corpuscular HGB Conc 31.3 GM/DL (32-36); Mean Corpuscular Volume 92.9 FL (87-102); Mean Platelet Volume 11.7 FL (9.6-12.0); Monocytes % 2.2 % (1.7-12.7); Neutrophils % 85.5 % (38.7-73.9); Platelet Count 351 T/CUMM (130-400); Red Blood Count 3.82 MC/CUMM (3.8-5.5); Red Cell Distribution Width 15.3 % (9.3-17.3)
[2021-10-01 06:49] LABS: Osmolality,Calculated 277.8 MOS/KG (273-304); Potassium 4.4 MMOL/L (3.5-5.1)
[2021-10-01 07:01] LABS: Band Neutrophils 2 % (0-10); Eosinophils 4 % (0-10); Hypochromia Slight; Lymphocytes 5 % (20-55); Microcytosis Slight; Platelet Estimate Adequate; Segmented Neutrophils 88 % (50-85); Total Cells Counted 100
[2021-10-01] MEDS ORDERED: LEVOFLOXACIN 750 MG TABLET PO SCH (08:00)
[2021-10-01 08:29] VITALS: BP 145/55
[2021-10-01] MEDS: PANTOPRAZOLE 40 MG TABLET PO SCH (08:39)
[2021-10-01] MEDS: TAMSULOSIN 0.4 MG CAPSULE PO SCH (08:39)
[2021-10-01] MEDS: ASPIRIN EC 81 MG TABLET PO SCH (08:39)
[2021-10-01] MEDS: MAGNESIUM OXIDE 400 MG TABLET PO SCH (08:39)
[2021-10-01] MEDS: carvediloL 25 MG TABLET PO SCH (08:39)
[2021-10-01] MEDS: ENOXAPARIN 40 MG/0.4 ML SYRINGE SUBCUT SCH (08:40)
[2021-10-01] MEDS ORDERED: FUROSEMIDE 20 MG TABLET PO SCH (09:00)
== END 2021-10-01 10:25 | disposition home or self-care (01) | DRG 579 ==
LOC: N.SDSINP 10:35 → N.3E 10:35 → N.OR 10:35 → N.SDSINP 10:37 → N.3E 14:16
PROVIDERS: ADMIT Surgery; ATTEND Surgery